=== PATIENT | female | born 1955 | race Caucasian/White ===

== ENCOUNTER 2019-01-02 15:39 | Inpatient (IN) | payer BC, MEDICARE ==
--- OUTSIDE RECORDS SUMMARY | 2019-01-02 16:40 | XMS REPORT | Continuity of Care Document ---
:1955 External Reference #:[id number] Author Name Lawrence Love MD (transmitted by agent of provider Norma Acosta) Address [address] [place] [address] Care Team Providers Name Role Phone Kari Lamas MD - Internal Medicine Care Team Information Rate Supervisor Kati Rosenthal MD - Physical Care Team Information Rate Supervisor [phone] Medicine & Rehabilitation Lawrence Love MD - Gastroenterology Care Team Information Rate Supervisor Christy Oneill MD - Surgery Care Team Information Rate Supervisor [phone] Elizabeth Giles MD - Internal Care Team Information Rate Supervisor Medicine Beltran Mac MD, [facility], [facility] - Care Team Information Rate Supervisor Cardiovascular Disease Kaylee Medina MD - Internal Care Team Information Rate Supervisor [phone] Medicine Gilberto Martell MD - Vascular Care Team Information Rate Supervisor [phone] Neurology Problems Active Problems Provider Date Sleep disorder Kari Lamas M.D. Onset: 10/27/2011 Mixed hyperlipidemia Kari Lamas M.D. Onset: 12/01/2012 Mitral valve disorder Paolo Olguin M.D. Onset: 06/21/2013 Dyspnea Paolo Olguin M.D. 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 Onset: 05/18/2013 Note: Dr. 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 Onset: 07/16/2014 Note: LAD Social History Type Date Description Comments Sex Unknown Tobacco Use Start: Unknown Never Smoked Cigarettes Smoking Status Reviewed: 12/07/18 Never Smoked Cigarettes ETOH Use Rarely consumes alcohol Tobacco Use Start: Unknown Patient has never smoked Recreational Drug Use Denies Drug Use Exercise Type/Frequency Exercises sporadically walking Allergies, Adverse Reactions, Alerts Active Allergies Reaction Severity Comments Date Sulfa rash Moderate 10/27/2011 Atorvastatin Myalgias 08/29/2014 Medications Active Medications SIG Qnty Indications Ordering Date Provider Fenofibrate Take 1 Tablet By 90tabs Elizabeth Giles, 04/10/2018 160mg Tablets Mouth Every Day M.D. Tikosyn 1 by mouth twice 180caps Paolo D. 05/06/2015 125mcg Capsules a day Brand, M.DJak Acetaminophen ER 1 tab by mouth 120tabs Unknown 650mg twice a day as Tablets ER needed Aspirin Low Dose 1 by mouth every Unknown 81mg day Tablets Lisinopril 1 tab every day 90tabs Paolo D. 2.5mg Tablets (hold for sbp Brand, M.D. <90) Hearing Aid started using Unknown Tuesday04/29/15 Multivitamins Gummies 1 gummie daily Unknown Immunizations CPT Code Status Date Vaccine Lot # [id number] Given 11/01/2018 Pneumococcal Conjugate Vaccine 13 Valent For [id number] Intramuscular Use 61787 Given 11/21/2017 Influenza Virus Vaccine, Quadrivalent, Split, Preservative Free 24812 Given 11/08/2016 Influenza Virus Vaccine, Quadrivalent, Split, [id number] Preservative Free 76263 Given 09/23/2016 Zoster (Zostavax) [id number] 76678 Given 11/13/2015 Influenza Virus Vaccine, Quadrivalent, Split, [id number] Preservative Free [id number] Given 01/14/2013 Flu Vaccine NOS 30341 Given 12/01/2012 Tdap - Tetanus/Diptheria/Acellular Pertussis [id number] 55231 Given Unknown Influenza Virus Vaccine, Quadrivalent, Split, Preservative Free Vital Signs Date Vital Result Comment 12/07/2018 2:45pm Height 64 inches 5'4" Weight 128.00 lb Heart Rate 73 /min BP Systolic 106 mmHg BP Diastolic 65 mmHg O2 % BldC Oximetry 92 % 92-94 while monitoring BMI (Body Mass Index) 22.0 kg/m2 11/01/2018 2:06pm Height 64 inches 5'4" Weight 128.00 lb Heart Rate 73 /min BP Systolic Sitting 113 mmHg BP Diastolic Sitting 62 mmHg O2 % BldC Oximetry 97 % BMI (Body Mass Index) 22.0 kg/m2 Results Test Date Facility Test Result H/L Range Note Laboratory test 11/01/2018 [facility] Cytology SEE RESULT [address] [place], [place] [id number] [phone] Order 11/01/2018 [facility] In-House Ear Irrigation <pending> 1 SEE RESULT BELOW Name: PATTIEYOHAJA KARIS : [address]: Elizabeth Giles MD Acct: [id number] Unit: [id number] AGE: 63 Location: [facility] Re11/01/18 SEX: F Status: REG REF SPEC: [id number] SKYLAR: 11/01/18-[address] [facility] [address]: Elizabeth Giles MD REQ: [id number] RECD: 11/01/18 STATUS: SOUT _ ORDERED: TP IMAGE ANALYS, HPV/Thin Prep, HPV 16/18 GENE COMMENTS: [id number] FINAL DIAGNOSIS Negative for Intraepithelial lesion or Malignancy HPV RESULTS Date Time Test Result Flag (u) Normal Range 11/01/18 1458 HPV PRASANNA RFLX GE Negative Negative The high-risk HPV types detected by the assay include: 16, 18, 31, 33, 35, 39, 45, 51, 52, 56, 58, 59, 66, and 68. SPECIMEN(S) RECEIVED A. Ectocervical/Endocervical CYTOLOGY ADEQUACY Specimen Adequacy: Satisfactory of evaluation Transformation zone component cannot be definitely identified due to presence of atrophy or other hormonal changes CYTOLOGY PATIENT INFORMATION Patient Information: HPV: High risk HPV RNA testing regardless of pap results. HPV 16/18 Genotype Reflex Actual Specimen Date: 11/01/18 Post Menopausal?: Y Previous Abnormal Pap Smears?:N CONTINUED ON NEXT PAGE DEPARTMENT OF PATHOLOGY, [address] [place] [address] Herbert Cabrera M.D. Director [facility] # [id number] Signed by and Reported on: GREYSON Meléndez(ASCP) [id number] This Pap test was evaluated with the assistance of the Sun Number[employer] Test Imaging System. Due to cytologic findings at the metal drill press operator microscope, comprehensive manual rescreening by a Data Warehousing Manager may be required. The Pap Smear is a screening test designed to aid in the detection of premalignant and malignant conditions of the uterine cervix. It is not a diagnostic procedure and should not be used as the sole means of detecting cervical cancer. Both false- positive and false- negative reports do occur. Depending on your risk status, a Pap smear should be obtained and evaluated every 1-3 years. END OF REPORT DEPARTMENT OF PATHOLOGY, [address] [place] [address] Herbert Cabrera M.D. Director [facility] # [id number] Procedures Date Code Description Status 11/01/2018 04805 Remove Impact Cerumen Irrigati Completed 08/09/2018 48551 EKG Tracing & Interpretation Completed 01/28/2017 [id number] Mammogram Completed 10/28/2016 [id number] Bone Mineral Density Test Completed 01/27/2016 [id number] Mammogram Completed 01/23/2014 [id number] Mammogram Completed 05/10/2013 [id number] Mammogram Completed 03/05/2013 [id number] Colonoscopy Completed 02/20/2013 [id number] Mammogram Completed 05/15/2010 [id number] Mammogram Completed 02/14/2005 [id number] Bone Mineral Density Test Completed Medical Devices Description No Information Available Encounters Type Date Location Provider Dx Diagnosis Office Visit 08/09/2018 [facility] Paolo Worthy I48.0 Paroxysmal atrial 9:30a Of Lroraine Olguin M.D. fibrillation I25.10 Athscl heart disease of resighini coronary artery w/o ang pctrs I34.0 Nonrheumatic mitral (valve) insufficiency Assessments Date Code Description Provider 11/01/2018 Z00.00 Encounter for general adult medical Elizabeth Giles M.D. examination without abnormal findings 11/01/2018 Z12.31 Encounter for screening mammogram for Elizabeth Giles M.D. malignant neoplasm of breast 11/01/2018 Z12.4 Encounter for screening for malignant Elizabeth Giles M.D. neoplasm of cervix 11/01/2018 Z86.010 Personal history of colonic polyps Elizabeth Giles M.D. 11/01/2018 Z23 Encounter for immunization Elizabeth Giles M.D. 11/01/2018 H61.21 Impacted cerumen, right ear Elizabeth Giles M.D. 11/01/2018 E78.2 Mixed hyperlipidemia Elizabeth Giles M.D. 08/09/2018 I48.0 Paroxysmal atrial fibrillation Paolo Olguin M.D. 08/09/2018 I25.10 Atherosclerotic heart disease of resighini Paolo Olguin M.D. coronary artery with 08/09/2018 I34.0 Nonrheumatic mitral (valve) insufficiency Paolo Olguin M.D. Plan of Treatment Future Appointment(s):01/31/2019 10:30 am - Paolo Olguin M.D. at [facility]05/08/2019 9:15 am - Elisa Wynn MD at [facility] Functional Status Description No Information Available Mental Status Description No Information Available Referrals Refer to Reason for Referral Status Appt Date Lawrence Love MD Sent 11/10/2018 [address] [place] [id number] [phone]
[2019-01-02 19:15] LABS: Albumin 3.4 g/dL (3.2-5.2); Albumin/Globulin Ratio 1.2 (1-3); BUN/Creatinine Ratio 29.2 (8-20); EGFR African American 111.4 (>60); EGFR Non-African American 92.1 (>60); Globulin 2.9 g/dL (2-4); Potassium 3.8 mmol/L (3.5-5.0); Total Bilirubin 0.4 mg/dL (0.2-1.0); Total Protein 6.3 g/dL (6.4-8.9)
[2019-01-02] MEDS ORDERED: Azithromycin 500 mg/250 ml NS 500 MG/250 ML BAG IVPB SCH (20:00)
--- NOTE | 2019-01-02 20:16 | HP ---
ADMISSION HISTORY AND PHYSICAL: DATE OF ADMISSION: 01/02/19 REASON FOR ADMISSION: Possible aspiration pneumonia. HISTORY OF PRESENT ILLNESS: This is a 63-year-old white female with a prior history of myotonic muscular dystrophy and recurrent AFib who underwent an elective outpatient colonoscopy earlier today. After the procedure, the patient was noted to have noisy respirations and a low SpO2. CXR showed an infiltrate in the left lower lobe (no prior films available for comparison). The patient denies any symptoms of a respiratory tract infection, and there hve been no recent URIs. OUTPATIENT MEDICATIONS: 1. Lisinopril 2.5 mg daily. 2. Tikosyn 125 mcg twice daily. 3. Fenofibrate 160 mg daily. DRUG ALLERGIES: SULFA, which causes a rash and ATORVASTATIN, which causes myalgias. SOCIAL HISTORY: The patient lives with her . There is no history of smoking, alcohol, or illicit drug use. REVIEW OF SYSTEMS: Noncontributory. PHYSICAL EXAMINATION GENERAL: The patient appeared tired, but was alert and oriented. VITAL SIGNS: Temperature was 97.3, heart rate 100 and regular, respiratory rate 22, O2 sat 90% on O2 by OxyMask at 15 L per minute, blood pressure 108/57. HEENT: Oropharynx was clear. There was no facial asymmetry. NECK: Supple. LUNGS: There were coarse rhonchi in the upper lung mcconnell, both anterior and posteriorly. No crackles or wheezes. CARDIAC: No murmurs. ABDOMEN: Not distended and nontender. EXTREMITIES: Warm, not cyanotic, and not edematous. DIAGNOSTIC STUDIES/LAB DATA: Labs pending. IMPRESSION AND PLAN: Acute hypoxemic respiratory failure due to left lower lobe pneumonia, which may be related to aspiration of mouth secretions during the procedure. Management: Empiric antibiotic treatment for community-acquired pneumonia with ceftriaxone and azithromycin. Culture blood and urine prior to antibiotics. Supplemental O2 to keep SpO2 > 90% and BIPAP in the evenings TIME SPENT: Critical care time: 60 minutes. [id number]/CPS #: [id number] MTDD
[2019-01-02 20:21] LABS: Hematocrit 41 % (35-47); Hemoglobin 13.5 g/dL (12.0-16.0); Mean Corpuscular HGB Conc 33 g/dL (31-36); Mean Corpuscular Hemoglobin 33 pg (27-31); Mean Corpuscular Volume 99 fL (80-97); Mean Platelet Volume 8.8 fL (7.4-10.4); Platelet Count 228 10^3/uL (150-450); Red Blood Count 4.12 10^6 /uL (3.70-4.87); Red Cell Distribution Width 14 % (10-15)
[2019-01-02] MEDS: Dofetilide CAP* 125 MCG PO SCH (20:59)
[2019-01-02] MEDS: Heparin VIAL(*) 5000 UNITS/ML VIAL (FIVE THOUSAND) SUBCUT SCH (21:06)
--- NOTE | 2019-01-02 21:22 | PN ---
Progress Note - Progress Note Date of Service: 01/02/19 Note: ECG shows a sinus rhythm with a left bundle branch block, Which is new since the last ECG on 05/08/2018. Will ask cardiology to evaluate in AM. Patient is clinically stable at this time.
[2019-01-03] MEDS ORDERED: NS 0.9% 1000 ML/HR X 1 BAG (TOTAL 1000 ML) IV ONE ×2 (01:15→02:30)
[2019-01-03 02:37] LABS: Hematocrit 35 % (35-47); Hemoglobin 11.4 g/dL (12.0-16.0); Mean Corpuscular HGB Conc 33 g/dL (31-36); Mean Corpuscular Hemoglobin 33 pg (27-31); Mean Corpuscular Volume 98 fL (80-97); Mean Platelet Volume 8.8 fL (7.4-10.4); Platelet Count 203 10^3/uL (150-450); Red Blood Count 3.51 10^6 /uL (3.70-4.87); Red Cell Distribution Width 13 % (10-15); White Blood Count 6.6 10^3/uL (3.5-10.8)
[2019-01-03 02:56] LABS: Albumin 2.8 g/dL (3.2-5.2); Albumin/Globulin Ratio 1.2 (1-3); BUN/Creatinine Ratio 24.1 (8-20); Calcium 8.1 mg/dL (8.6-10.3); EGFR African American 88.9 (>60); EGFR Non-African American 73.5 (>60); Globulin 2.4 g/dL (2-4); Potassium 4.1 mmol/L (3.5-5.0); Total Bilirubin 0.4 mg/dL (0.2-1.0); Total Protein 5.2 g/dL (6.4-8.9)
[2019-01-03] MEDS: NS 0.9% 1000 ML** 1,000 ML IV SCH (03:24)
[2019-01-03 08:48] LABS: Magnesium 1.8 mg/dL (1.9-2.7)
[2019-01-03] MEDS: Dofetilide CAP* 125 MCG PO SCH ×2 (08:56→20:05)
[2019-01-03] MEDS: Heparin VIAL(*) 5000 UNITS/ML VIAL (FIVE THOUSAND) SUBCUT SCH (08:56)
[2019-01-03] MEDS ORDERED: Albuterol/Ipratropium NEB.SOL* Albuterol 2.5 MG/Ipratropium 0.5 MG 3 ML ONE (09:27)
[2019-01-03] MEDS: Albuterol/Ipratropium NEB.SOL* Albuterol 2.5 MG/Ipratropium 0.5 MG 3 ML INH PRN ×2 (09:29→13:34)
[2019-01-03] MEDS ORDERED: Magnesium Sulfate 2 GM IV* 2 GM/50 ML BAG IVPB ONE (09:42)
[2019-01-03] MEDS ORDERED: Heparin VIAL(*) 5000 UNITS/ML VIAL (FIVE THOUSAND) IV PRN (10:15)
[2019-01-03] MEDS ORDERED: Heparin DRIP 25,000 UNITS(*) 25,000 UNITS/500 ML BAG IV SCH (10:15)
[2019-01-03] MEDS: Aspirin 81 mg CHEW TAB* 81 MG TAB.CHEW PO SCH (10:18)
[2019-01-03] MEDS: Cefepime 1 GM in Dextrose(*) 1 GM/50 ML BAG IV SCH ×2 (10:19→21:35)
[2019-01-03 10:43] LABS: Troponin I 0.03 ng/mL (<0.03)
[2019-01-03 10:46] LABS: Hematocrit 33 % (35-47); Mean Corpuscular HGB Conc 33 g/dL (31-36); Mean Corpuscular Hemoglobin 33 pg (27-31); Mean Corpuscular Volume 98 fL (80-97); Mean Platelet Volume 9.1 fL (7.4-10.4); Platelet Count 183 10^3/uL (150-450); Red Blood Count 3.36 10^6 /uL (3.70-4.87); Red Cell Distribution Width 13 % (10-15); White Blood Count 7.5 10^3/uL (3.5-10.8)
[2019-01-03] MEDS ORDERED: Adenosine* 3 MG/ML VIAL IV PUSH ONE (10:59)
[2019-01-03] MEDS ORDERED: Adenosine* 3 MG/ML VIAL ONE (11:02)
[2019-01-03 11:07] LABS: ABS Lymphocytes 0.7 10^3/ul (1.0-4.8); ABS Monocytes 0.3 10^3/ul (0-0.8); ABS Neutrophils 6.5 10^3/ul (1.5-7.7); Eosinophil % 0.1 %; Lymphocyte % 9.4 %
[2019-01-03 12:22] LABS: Troponin I 0.03 ng/mL (<0.03)
--- NOTE | 2019-01-03 12:35 | CONS ---
CONSULTATION REPORT: DATE OF CONSULT: 01/03/19 ATTENDING PHYSICIAN: Dr. Luis Uriarte, Cardiology.* (DICTATED BY TRINA SALGUERO NP) REASON FOR CONSULTATION: New left bundle-branch block. PRIMARY PRESIDENT AND CHIEF OPERATING OFFICER: Dr. Paolo Olguin. PRIMARY PHYSICIAN: Dr. Giles. CHIEF COMPLAINT: Here for elective colonoscopy, unfortunately developed respiratory compromise during procedure according to medical records. HISTORY OF PRESENT ILLNESS: This is a pleasant 63-year-old female patient with a notable history of paroxysmal AFib, paroxysmal aflutter, on Tikosyn therapy, most recent cardioversion was in 2015 in addition to coronary artery disease with known bare metal stent placement in 2013, relook in January of 2014 revealed 30% in- stent restenosis, hyperlipidemia, obstructive sleep apnea, myotonic dystrophy with prior tracheostomy, history of right subclavian DVT, mitral valve prolapse with history of severe mitral valve insufficiency status post mitral valve repair with size 28 ring at [facility] in September of 2013. The patient states she has been in her usual state of health. Denies any recent illness, infection, hospitalization. She presented to [facility] yesterday, 01/02/19, for elective colonoscopy with Dr. Love. According to medical records during the case, the patient became hypoxic, oxygenation in 80s. She was given Narcan and Romazicon. Oxygen improved to low 90s. She was admitted to the ICU on 01/02/19 due to hypoxia, possible aspiration pneumonia. ECG 01/02/19 revealed sinus rhythm rate 106 with new left bundle-branch block, thus we were asked to see the patient in consultation. She denies chest pain, dizziness, syncope. Does report chest congestion and forceful heart beats. She offers no complaints at this time. Last echocardiogram was in 2018. At that time, LVEF was 60% to 65% with mild left ventricular hypertrophy, trace aortic insufficiency, mean mitral valve gradient was 4. Last ischemic evaluation was via relook left heart catheterization in January of 2014. Per report at that time, left main 20%, LAD 30% in-stent restenosis, left circumflex and right coronary artery disease. No significant stenosis. PAST MEDICAL HISTORY: 1. Coronary artery disease. 2. Mitral valve replacement with history of severe mitral insufficiency, status post mitral valve repair in 2013. 3. Myotonic muscular dystrophy. 4. History of paroxysmal AFib, flutter. 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 6. Obstructive sleep apnea. 7. Hyperlipidemia. 8. Right subclavian DVT postoperatively. 9. Type 1 AV block. PAST SURGICAL HISTORY: Includes: 1. Prior left heart catheterization in 2013 which resulted in bare metal stent placement to LAD. 2. Relook left heart catheterization January 2014 revealed 30% in-stent restenosis. 3. Cardioversion in 2014 and most recent 2015. 4. Cholecystectomy. 5. Tonsillectomy. 6. 10/11/13 at [facility] she underwent mitral valve repair with size 28 ring. 7. Tracheostomy. HOME MEDICATIONS: Include: 1. Aspirin 81 mg a day. 2. Tikosyn 125 mcg p.o. b.i.d. 3. Fenofibrate 160 mg a day. 4. Lisinopril 2.5 mg daily. 5. Tylenol as directed and multivitamin as directed. ALLERGIES: Listed include SULFA and LIPITOR which causes myalgias. FAMILY HISTORY: Noncontributory. SOCIAL HISTORY: The patient is , lives at home with her . She ambulates independently but is limited. Denies tobacco use, drug use, alcohol use. REVIEW OF SYSTEMS: All systems have been reviewed and otherwise negative except as above mentioned in the HPI. PHYSICAL EXAMINATION: Pulse is 110, respirations 25, oxygenation is 91% on 6 L nasal cannula, blood pressure is 89/44. General: The patient is lying upright in bed with at bedside, appears in no apparent distress. She is an ill - appearing woman who is pleasant and cooperative with examination. HEENT: Head is atraumatic, normocephalic. Oral mucosa is moist. Tongue is midline. Neck: Supple. Trachea midline. No JVD. No carotid bruits. Cardiac: Tachycardic, S1 and S2. Regular rate and rhythm. There is a grade 2/5 systolic mitral valve murmur auscultated under left axilla; otherwise no gallop or rub. Lungs: Auscultated posteriorly, diffuse inspiratory, expiratory rhonchi noted throughout. No retractions noted. /GI: Abdomen is soft, nontender, nondistended. Normoactive bowel sounds x4. Extremities: No clubbing , no cyanosis, no edema. Peripheral Vascular: 2+ brachial pulse and dorsalis pedis pulse palpated bilaterally and symmetrically. DIAGNOSTIC STUDIES/LAB DATA: Blood work from 01/03/19 revealed sodium 138, potassium 4.1, chloride 108, carbon dioxide 25, BUN 19, creatinine 0.79, glucose 183, magnesium 1.8. Troponin 0.03. White count 7.5, hemoglobin 11, hematocrit 33, platelets 183. Chest x-ray from 01/03/19 per Radiology report; bilateral infiltrates with new left pleural effusion. Echocardiogram pending. ASSESSMENT AND PLAN: 1. New left bundle-branch block, etiology not clear, could be rate related; however, she does have known in-stent restenosis 30% in 2013 via re-looked heart catheterization. She denies angina like symptoms. She is currently being treated for possible aspiration pneumonia. Troponin is mildly elevated which is to be expected given acute illness; however, we will cycle isoenzymes. She is on IV heparin therapy which we would continue at this current time. We will await echocardiogram to rule out focal wall motion abnormality and reassess LV function. She has a history of nonischemic cardiomyopathy with normalization of EF in the past after mitral valve was repaired in 2013. We will follow closely. 2. Possible aspiration pneumonia; defer to Dr. Spain. Avoid medications that can prolong QTc given the patient is on Tikosyn therapy. 3. History of paroxysmal AFib, aflutter. The patient was given 3 mg IV adenosine. It was difficult to discern whether or not the patient was having underlying flutter, however, after administration of IV adenosine, it was clear that the patient is in sinus tachycardia. Recommend continuing Tikosyn therapy at 125 mcg p.o. b.i.d. Keep K greater than 4, mag greater than 2, avoid QTc prolonging agents. Azithromycin was discontinued. We will follow. 4. History of coronary artery disease with prior bare metal LAD stent with note of 30% in-stent re-stenosis based in January 2014 left heart catheterization. The patient denies chest pain. We will restart aspirin 81 mg a day. The patient is not on statin therapy due to history of myalgias. She needs to follow up outpatient to discuss initiation of PCS, K9 inhibitor, last LDL was 154. She has a new left bundle-branch block with troponinemia. We will cycle isoenzymes. Chest echo for focal wall motion abnormality and follow closely. 5. Disposition: Pending course. 6. The patient is full code. Dr. Luis Uriarte, has personally seen and examined, the patient agrees with the above assessment and plan. Thank you for this kind consultation. Any future questions or concerns, please do not hesitate to contact our service. TRINA SALGUERO, ASSET PROTECTION LEAD [id number]/[facility] #: [id number] patient examined and chart reviewed. d/w patient, at bedside, Ms. Salguero , and Dr. Spain on 01.03.19. Suspect significant pulmonary process and probable demand ischemia/small nstemi. However, given complex medical history and h.o CAD, repeat cardiac evaluation planned including echo and serial ekg's and serial troponins. We also performed a bedside evaluation with IV adenosine to evaluate her tachycardia with LBBB. With adenosine administration, she appeared to have sinus tachycardia, sinus slowing, one nonconducted p wave and then resumption of sinus tachycardia with a LBBB. Given her h.o paroxysmal afib, I suggested consideration of anticoagulation to decrease her risk of cardioembolic events The patient and her were reluctant to commit to long wall mining machine tender anticoagulation and were planning on discussing further with her primary banana room cutter Dr. Olguin. JEREL Uriarte MD 01.05.19 [facility]
[2019-01-03] MEDS ORDERED: Albuterol/Ipratropium NEB.SOL* Albuterol 2.5 MG/Ipratropium 0.5 MG 3 ML INH SCH ×2 (15:00→16:00)
--- NOTE | 2019-01-03 15:51 | ECHO ---
*[facility]* [place] [address] Fax #: [phone] Transthoracic Echocardiogram Patient: Cathleen Bailey : 1955 Study Date: 01/03/2019 Age: 63 Gender: F HR: 106 bpm Height: 66 in /167.6 cm BSA: 1.62 m^2 Weight: 121.7 lb /55.3 kg BMI: 19.7 kg/m^2 *Maintenance Pipefitter: * Felecia Banks [facility] *Referring Physician: * Johana Salguero *Reading Physician: * Luis Uriarte MD Indications: Abnormal EKG. History: Atrial fibrillation. Functional status: Following treatment plan for sleep apnea. Risk factors: Hypertension. Labs, prior tests, procedures, and surgery: Catheterization with coronary intervention (08/20/2013). There was a stenosis in the left anterior descending coronary artery which was treated with a bare-metal stent. Valve surgery (10/07/2013). Mitral annuloplasty ([id number], [id number]). Conclusions Summary: - Left ventricle: The cavity size is below normal. Wall thickness is normal. Systolic function is normal. The estimated ejection fraction is 60-65%. Systolic function is improved from the study of January 2014. Hypokinesis of the entire anteroseptal and inferoseptal myocardium possibly related to the LBBB. There is severe interventricular dyssynchrony. Doppler parameters are consistent with abnormal left ventricular relaxation (grade 1 diastolic dysfunction). - Right ventricle: The cavity size is mildly to moderately dilated. Systolic function is mildly to moderately reduced. Systolic pressure is moderately increased. - Mitral valve: Prior procedures include surgical repair. There is a normally functioning annuloplasty ring. The findings are consistent with mild to moderate stenosis.by mean gradient which may be elevated due the to resting tachycardia of 107 bpm. - Aortic valve: The valve is trileaflet. The leaflets are mildly thickened. - Tricuspid valve: There is moderate-severe regurgitation. Regurgitation has increased in comparison with the study of January 2014. - Pulmonary arteries: Systolic pressure is moderately increased. Pulmonary artery pressure has increased from the study of January 2014. Study data: Transthoracic echocardiogram. Procedure: Transthoracic echocardiography was performed. Image quality was fair. The study was technically limited due to restricted patient mobility. Complete 2D, spectral Doppler, and color flow Doppler. Location: ICU Patient status: Inpatient. Patient room number: ICU-05. The previous study was not available, so comparison is made to the report of January 2014. Rhythm: Tachycardia. Findings Left ventricle: The cavity size is below normal. Wall thickness is normal. Systolic function is normal. The estimated ejection fraction is 60-65%. Systolic function is improved from the study of January 2014. There is severe interventricular dyssynchrony. Regional wall motion abnormalities: Hypokinesis of the entire anteroseptal and inferoseptal myocardium possibly related to the LBBB. Hypokinesis of the basal-midinferior myocardium. Doppler parameters are consistent with abnormal left ventricular relaxation (grade 1 diastolic dysfunction). Right ventricle: The cavity size is mildly to moderately dilated. Systolic function is mildly to moderately reduced. Systolic pressure is moderately increased. Ventricular septum: There is septal flattening of the interventricular septum consistent with RV volume or pressure overload. Left atrium: The atrium is normal in size. Right atrium: The atrium is mildly dilated. Mitral valve: Prior procedures include surgical repair. There is a normally functioning annuloplasty ring. The leaflets are mildly thickened. The findings are consistent with mild to moderate stenosis.by mean gradient which may be elevated due the to resting tachycardia of 107 bpm. There is no significant regurgitation. Aortic valve: The valve is trileaflet. The leaflets are mildly thickened. There is no evidence of stenosis. There is no significant regurgitation. Tricuspid valve: The leaflets are normal thickness. There is no evidence of stenosis. There is moderate-severe regurgitation. Regurgitation has increased in comparison with the study of January 2014. Pulmonic valve: The leaflets are normal thickness. There is no evidence of stenosis. There is trace regurgitation. Aorta: Aortic root: The aortic root is appears normal. Ascending aorta: The ascending aorta is appears normal. Aortic arch: The aortic arch is appears normal. Pericardium: There is no significant pericardial effusion. Pulmonary arteries: The main pulmonary artery is normal-sized. Systolic pressure is moderately increased. Pulmonary artery pressure has increased from the study of January 2014. Systemic veins: Inferior vena cava: Not well visualized. Measurements Left ventricle Value Ref Aortic valve Value Ref JALYN, LAX (L) 3.6 cm 3.8 - 5.2 Blaze diam, ED 1.9 cm ----- ESD, LAX 2.4 cm 2.2 - 3.5 Peak v, S 1.47 m/sec ----- FS, LAX 34 % - 45 VTI, S 20.4 cm ----- PW, ED, LAX 0.7 cm 0.6 - 0.9 Mean grad, S 5.0 mm Hg ----- FS 34 % - 45 Peak grad, S 9.0 mm Hg ----- PW, ED 0.7 cm 0.6 - 0.9 LVOT/AV, VTI ratio 0.98 ----- E', lat blaze, TDI (L) 7.3 cm/sec >=10.0 E/e', lat blaze, 19 Mitral valve Value Ref TDI Peak E 1.4 m/sec ----- E', med blaze, TDI (L) 5.9 cm/sec >=7.0 Peak A 2.3 m/sec --- -- E/e', med blaze, 24 VTI leaflet coapt 38.0 cm ----- TDI Decel time 145 ms ----- E', avg, TDI 6.6 cm/sec PHT 88 ms ----- E/e', avg, TDI (H) 21 <=14 Mean grad, D 10.0 mm Hg --- -- Peak grad, D 22.0 mm Hg ----- LVOT Value Ref Peak E/A ratio 0.61 ----- Peak kinjal, S 1.3 m/sec MVA, PHT 2.5 cm^2 ----- VTI, S 20.0 cm Peak grad, S 7 mm Hg Pulmonic valve Value Ref Mean grad, S 5 mm Hg Peak v, S 0.91 m/sec ----- Peak grad, S 3.0 mm Hg ----- Ventricular septum Value Ref IVS, ED (H) 1.0 cm 0.6 - 0.9 Tricuspid valve Value Ref TR peak v (H) 3.5 m/sec <=2.8 Right ventricle Value Ref Peak RV-RA grad, S 49 mm Hg ----- AW thickness, ED 0.3 cm 0.1 - 0.5 JALYN, LAX 2.0 cm Aortic root Value Ref JALYN minor ax, A4C (H) 4.3 cm 1.9 - 3.5 Root diam 3.0 cm <3.9 mid Pressure, S 57 mm Hg Ascending aorta Value Ref AAo AP diam, S 2.9 cm ----- Left atrium Value Ref AP dim, ES 3.40 cm 2.70 - Aortic arch Value Ref 3.80 Arch diam 1.7 cm ----- ML dim, A4C 3.4 cm SI dim, A4C 5.1 cm Decending aorta Value Ref Vol/bsa, ES, 1-p 21 ml/m^2 11 - 40 Syed peak kinjal 0.8 m/sec ----- A4C Vol/bsa, ES, A/L 27 ml/m^2 16 - 34 Pulmonary artery Value Ref Pressure, S 54.0 mm Hg ----- Right atrium Value Ref SI dim, ES (H) 5.6 cm 3.4 - 5.3 ML dim, ES, A4C 3.6 cm 2.6 - 4.4 SI dim, ES, A4C (H) 5.6 cm 3.4 - 5.3 Legend: (L) and (H) linda values outside specified reference range. Prepared and electronically signed by Luis Uriarte MD 01/03/2019 15:50
--- NOTE | 2019-01-03 17:38 | PN ---
Date of Service: 01/03/19 Critical Care Services: Clinical status unchanged. CXR this AM shows continued infiltration of left lower lobe. Vital Signs: Temp Pulse Resp BP SpO2 FiO2 99.1 F 117 21 105/55 93 Physical Exam: Gen:Somnolent but arousable HEENT:oropharynx clear Lungs: crackles left base Cardiac: No murmurs Abdomen: not distended Extremities: No cyanosis or edema Fluid Balance (Past 24 Hours): 01/03/19 01/04/19 06:59 06:59 Intake Total 2466 1514 Output Total 0 Balance 2466 1514 Weight 122 lb 9 oz Intake: IV Fluids 2190 979 Mag 2g 62 Normal Saline 2190 855 heparin 62 IVPB 276 55 antibiotics 276 55 Oral 480 Output: Urine 0 Other: Estimated Void Large Medium # Voids 1 1 Labs: Laboratory Results - last 24 hr 01/02/19 01/02/19 01/03/19 18:46 20:05 02:28 WBC 6.0 RBC 4.12 Hgb 13.5 Hct 41 MCV 99 H MCH 33 H MCHC 33 RDW 14 Plt Count 228 MPV 8.8 Neut % (Auto) Lymph % (Auto) [place] % (Auto) Eos % (Auto) Baso % (Auto) Absolute Neuts (auto) Absolute Lymphs (auto) Absolute Monos (auto) Absolute Eos (auto) Absolute Basos (auto) Absolute Nucleated RBC Immature Gran % Neutrophils % Band Neutrophils % Lymphocytes % Monocytes % Eosinophils % Basophils % Nucleated RBC % Normal RBC Morphology APTT Sodium 139 138 Potassium 3.8 4.1 Chloride 105 108 Carbon Dioxide 22 25 Anion Gap 12 H 5 BUN 19 19 Creatinine 0.65 0.79 Est GFR ( Amer) 111.4 88.9 Est GFR (Non-Af Amer) 92.1 73.5 BUN/Creatinine Ratio 29.2 H 24.1 H Glucose 89 183 H Lactic Acid Calcium 9.0 8.1 L Magnesium 1.8 L Total Bilirubin 0.40 0.40 AST 28 21 ALT 16 14 Alkaline Phosphatase 37 27 L Troponin I 0.03 H* Total Protein 6.3 L 5.2 L Albumin 3.4 2.8 L Globulin 2.9 2.4 Albumin/Globulin Ratio 1.2 1.2 01/03/19 01/03/19 01/03/19 02:28 02:28 10:00 WBC 6.6 RBC 3.51 L Hgb 11.4 L Hct 35 MCV 98 H MCH 33 H MCHC 33 RDW 13 Plt Count 203 MPV 8.8 Neut % (Auto) Lymph % (Auto) [place] % (Auto) Eos % (Auto) Baso % (Auto) Absolute Neuts (auto) Absolute Lymphs (auto) Absolute Monos (auto) Absolute Eos (auto) Absolute Basos (auto) Absolute Nucleated RBC Immature Gran % Neutrophils % Band Neutrophils % Lymphocytes % Monocytes % Eosinophils % Basophils % Nucleated RBC % Normal RBC Morphology APTT Sodium Potassium Chloride Carbon Dioxide Anion Gap BUN Creatinine Est GFR ( Amer) Est GFR (Non-Af Amer) BUN/Creatinine Ratio Glucose Lactic Acid 1.0 Calcium Magnesium Total Bilirubin AST ALT Alkaline Phosphatase Troponin I 0.03 H* Total Protein Albumin Globulin Albumin/Globulin Ratio 01/03/19 01/03/19 01/03/19 10:28 10:28 14:00 WBC 7.5 RBC 3.36 L Hgb 11.0 L Hct 33 L MCV 98 H MCH 33 H MCHC 33 RDW 13 Plt Count 183 MPV 9.1 Neut % (Auto) 86.4 Lymph % (Auto) 9.4 [place] % (Auto) 4.0 Eos % (Auto) 0.1 Baso % (Auto) 0.1 Absolute Neuts (auto) 6.5 Absolute Lymphs (auto) 0.7 L Absolute Monos (auto) 0.3 Absolute Eos (auto) 0.0 Absolute Basos (auto) 0.0 Absolute Nucleated RBC 0.0 Immature Gran % 16.0 H Neutrophils % 64.0 Band Neutrophils % 16.0 H Lymphocytes % 12.0 Monocytes % 7.0 Eosinophils % 1.0 Basophils % 0.0 Nucleated RBC % 0.0 Normal RBC Morphology Normal APTT 38.0 Sodium Potassium Chloride Carbon Dioxide Anion Gap BUN Creatinine Est GFR ( Amer) Est GFR (Non-Af Amer) BUN/Creatinine Ratio Glucose Lactic Acid Calcium Magnesium Total Bilirubin AST ALT Alkaline Phosphatase Troponin I 0.02 Total Protein Albumin Globulin Albumin/Globulin Ratio Studies: Pneumococcal and legionella urinary antigens negative. Nutrition: Oral diet Impression: I still believe patient has a pneumonia in the left lower lobe. The leukocyte count is normal, but there are 16% band forms (suggesting infection or inflammation). Cardiology is evaluating the new left bundle branch block. Plan: 1. Continue broad-spectrum antibiotics, and monitor in the ICU. 2. BIPAP for sleep 3. Cardiology following LBBB. Critical Care Time: 40 minutes
[2019-01-03 19:34] LABS: EGFR African American 97.4 (>60); EGFR Non-African American 80.5 (>60)
[2019-01-03] MEDS: Albuterol/Ipratropium NEB.SOL* Albuterol 2.5 MG/Ipratropium 0.5 MG 3 ML INH SCH (19:58)
[2019-01-04 00:29] LABS: BUN/Creatinine Ratio 15.5 (8-20); Calcium 7.7 mg/dL (8.6-10.3); EGFR African American 100.6 (>60); EGFR Non-African American 83.1 (>60)
[2019-01-04] MEDS: Albuterol/Ipratropium NEB.SOL* Albuterol 2.5 MG/Ipratropium 0.5 MG 3 ML INH SCH ×4 (01:13→20:16)
[2019-01-04 02:19] LABS: ABS Lymphocytes 0.8 10^3/ul (1.0-4.8); ABS Monocytes 0.2 10^3/ul (0-0.8); ABS Neutrophils 3.3 10^3/ul (1.5-7.7); Eosinophil % 0.2 %; Hematocrit 31 % (35-47); Hemoglobin 10.4 g/dL (12.0-16.0); Mean Corpuscular HGB Conc 34 g/dL (31-36); Mean Corpuscular Hemoglobin 33 pg (27-31); Mean Corpuscular Volume 99 fL (80-97); Platelet Count 157 10^3/uL (150-450); Red Blood Count 3.14 10^6 /uL (3.70-4.87); Red Cell Distribution Width 14 % (10-15); White Blood Count 4.4 10^3/uL (3.5-10.8)
[2019-01-04] MEDS: NS 0.9% 500 ML* 500 ML IV ONE ×2 (08:00→11:47)
[2019-01-04] MEDS ORDERED: Etomidate* 2 MG/ML 20 ML VIAL (40 MG) ONE (08:29)
[2019-01-04] MEDS ORDERED: fentaNYL* 50 MCG/ML 5 ML VIAL (250 MCG VIAL) ONE (08:29)
[2019-01-04] MEDS: Propofol* 100 ML IV SCH ×4 (08:33→23:57)
[2019-01-04] MEDS ORDERED: Propofol* 100 ML ONE (08:37)
[2019-01-04] MEDS ORDERED: Enoxaparin(*) 60 MG/0.6 ML SYR SUBCUT SCH (10:00)
[2019-01-04] MEDS: Aspirin 81 mg CHEW TAB* 81 MG TAB.CHEW PO SCH (10:19)
--- NOTE | 2019-01-04 10:36 | PN ---
Cardiology Progress Note Date of Service: 01/04/19 Attention coders please do not bill for this encounter: EKG today NSR, normal qtc, no longer LBBB Discussed with Dr. Tony Spain does not need therapeutic anticoagulation from a cardiac standpoint Can use aspirin as was on prior to admission
[2019-01-04] MEDS: Chlorhexidine MOUTHWASH 0.12%* 15 ML UDC TOPICAL SCH ×4 (11:07→21:00)
[2019-01-04] MEDS: Dofetilide CAP* 125 MCG PO SCH ×2 (11:07→21:00)
[2019-01-04] MEDS: Cefepime 1 GM in Dextrose(*) 1 GM/50 ML BAG IV SCH ×2 (12:56→13:48)
--- NOTE | 2019-01-04 15:31 | PN ---
Date of Service: 01/04/19 Critical Care Services: Patient was intubated earlier today because of hypoxemia (sats down into low 70s despite vapotherm nad BIPAP) and is now on a ventilator. CXR continues to show a LLL infiltrate and small (by ultrasound) parapneumonic effusion. On cefapime as empiric Rx. The LBBB has resolved since the intubation. Vital Signs: Temp Pulse Resp BP SpO2 FiO2 97.1 F 89 16 91/56 99 80 Physical Exam: Gen:Unresponsive on propofol HEENT: No facial asymmetry Lungs: Coarse rhonchi both sides. Cardiac: Nu murmurs. Rhythm regular Abdomen:Not distended Extremities: No cyanosis or edema Fluid Balance (Past 24 Hours): 01/03/19 01/04/19 06:59 06:59 Intake Total 2466 3304 Output Total 0 200 Balance 2466 3104 Weight 122 lb 9 oz 121 lb 9 oz Intake: IV Fluids 2190 2759 Mag 2g 62 Normal Saline 2190 2356 antibiotics 59 heparin 282 IVPB 276 55 antibiotics 276 55 Medicated IV CC - Propofol/Diprivan Oral 490 Output: Urine 0 Valera 200 Other: Estimated Void Large Medium # Voids 1 2 Labs: 01/03/19 01/04/19 01/04/19 19:10 00:07 02:05 WBC RBC Hgb Hct MCV MCH MCHC RDW Plt Count MPV Neut % (Auto) Lymph % (Auto) [place] % (Auto) Eos % (Auto) Baso % (Auto) Absolute Neuts (auto) Absolute Lymphs (auto) Absolute Monos (auto) Absolute Eos (auto) Absolute Basos (auto) Absolute Nucleated RBC Nucleated RBC % APTT 90.5 H 88.6 H Sodium 138 Potassium 4.0 Chloride 112 H Carbon Dioxide 24 Anion Gap 2 BUN 11 Creatinine 0.71 Est GFR ( Amer) 100.6 Est GFR (Non-Af Amer) 83.1 BUN/Creatinine Ratio 15.5 Glucose 122 H Calcium 7.7 L 01/04/19 02:05 WBC 4.4 RBC 3.14 L Hgb 10.4 L Hct 31 L MCV 99 H MCH 33 H MCHC 34 RDW 14 Plt Count 157 MPV 9.0 Neut % (Auto) 75.3 Lymph % (Auto) 19.0 [place] % (Auto) 5.1 Eos % (Auto) 0.2 Baso % (Auto) 0.4 Absolute Neuts (auto) 3.3 Absolute Lymphs (auto) 0.8 L Absolute Monos (auto) 0.2 Absolute Eos (auto) 0.0 Absolute Basos (auto) 0.0 Absolute Nucleated RBC 0.0 Nucleated RBC % 0.0 APTT Sodium Potassium Chloride Carbon Dioxide Anion Gap BUN Creatinine Est GFR ( Amer) Est GFR (Non-Af Amer) BUN/Creatinine Ratio Glucose Calcium Studies: Chest ultrasound, as mentioned previously. Nutrition: None today Impression: 1. Hypoxemic respiratory failure from pneumonia of left lower lobe with retained secretions 2. No organism isolated and patient not responding to antibiotics - ? could this patient have [employer]? 3. Myotonic muscular dystrophy Plan: 1. Start tube feedings 2. Trial of steroids for [employer] - methylprednisolone at 125 mg IV q 6H x 5 days Critical Care Time:
[2019-01-04] MEDS: Acetaminophen ADULT LIQ* 650 MG/20.3 ML UDC PO PRN (17:32)
[2019-01-04] MEDS: Enoxaparin(*) 40 MG/0.4 ML SYR SUBCUT SCH (17:44)
[2019-01-04] MEDS: methylPREDNISolone 125 MG* 2 ML VIAL IV SCH (17:44)
--- NOTE | 2019-01-04 20:58 | PRO ---
DATE OF PROCEDURE: 01/04/19 - ROOM #ICU-05 PROCEDURE: Endotracheal intubation. INDICATIONS: The patient is a 63-year-old female with muscular dystrophy who developed a pneumonia in her left lower lobe and became progressively hypoxemic. This morning, arterial O2 sats were down into the 70s on Vapotherm, and the patient did not tolerate BiPAP, so endotracheal intubation was performed emergently. DESCRIPTION OF PROCEDURE: The patient was sedated with fentanyl and etomidate and a size 7.5 endotracheal tube was inserted through the vocal cords into the trachea under videoscopic control. Placement in the trachea was confirmed by qualitative CO2 color change. Postprocedure x-ray showed proper placement of the tube above the misael. There are no apparent complications. [id number] #: [id number] MTDD
[2019-01-04] MEDS: NS 0.9% 1000 ML** 1,000 ML IV SCH (21:08)
[2019-01-05] MEDS: Cefepime 1 GM in Dextrose(*) 1 GM/50 ML BAG IV SCH ×2 (00:20→12:35)
[2019-01-05] MEDS: Chlorhexidine MOUTHWASH 0.12%* 15 ML UDC TOPICAL SCH ×7 (00:21→23:56)
[2019-01-05] MEDS: methylPREDNISolone 125 MG* 2 ML VIAL IV SCH ×2 (00:21→06:03)
[2019-01-05] MEDS: Albuterol/Ipratropium NEB.SOL* Albuterol 2.5 MG/Ipratropium 0.5 MG 3 ML INH SCH ×4 (01:17→19:22)
[2019-01-05] MEDS: Propofol* 100 ML IV SCH ×4 (04:08→21:45)
[2019-01-05 07:51] LABS: Hematocrit 27 % (35-47); Hemoglobin 9.1 g/dL (12.0-16.0); Mean Corpuscular HGB Conc 34 g/dL (31-36); Mean Corpuscular Hemoglobin 33 pg (27-31); Mean Corpuscular Volume 98 fL (80-97); Mean Platelet Volume 9.7 fL (7.4-10.4); Platelet Count 167 10^3/uL (150-450); Red Blood Count 2.79 10^6 /uL (3.70-4.87); Red Cell Distribution Width 14 % (10-15); White Blood Count 4.9 10^3/uL (3.5-10.8)
[2019-01-05] MEDS: NS 0.9% 1000 ML** 1,000 ML IV SCH (07:56)
[2019-01-05 08:01] LABS: BUN/Creatinine Ratio 12.7 (8-20); EGFR African American 135.1 (>60); EGFR Non-African American 111.6 (>60); Potassium 3.5 mmol/L (3.5-5.0)
[2019-01-05] MEDS: Dofetilide CAP* 125 MCG PO SCH ×2 (08:31→21:49)
[2019-01-05] MEDS: Famotidine SUSP ORALSYR 8 MG/ML G TUBE SCH (08:32)
[2019-01-05] MEDS ORDERED: Dextrose 50% VIAL 50 ml IV PUSH PRN (09:53)
[2019-01-05] MEDS: Furosemide IV* 10 MG/ML VIAL (40 MG) IV SLOW PU SCH ×2 (10:21→17:25)
--- NOTE | 2019-01-05 11:13 | PN ---
Date of Service: 01/05/19 Critical Care Services: 63 y/o female acute hypoxic respiratory failure in setting of pneumonia Vital Signs: Temp Pulse Resp BP SpO2 FiO2 37.4 C 85 16 102/51 98 60 01/05/19 09:15 01/05/19 09:15 01/05/19 09:00 01/05/19 09:15 01/05/19 09:15 01/05 08:00 Physical Exam: Gen: intubated and sedated HEENT: intubated. PERRL Lungs: decreased basilar entry Cardiac: S1S2 regular Abdomen: soft, NT, ND, +BS Extremities: +1 edema Neuro: rouses through light sedation Fluid Balance (Past 24 Hours): I= O= Net Intake & Output 01/03/19 01/04/19 01/05/19 01/06/19 06:59 06:59 06:59 06:59 Intake Total 2466 3304 2532 Output Total 0 200 1550 275 Balance 2466 3104 982 -275 Weight 55.593 kg 55.14 kg 55.267 kg Intake: IV Fluids 2190 2759 2046 Mag 2g 62 Normal Saline 2190 2356 2046 antibiotics 59 heparin 282 IVPB 276 55 114 antibiotics 276 55 114 Medicated IV 372 CC - Propofol/Diprivan 372 Oral 490 Output: Urine 0 Valera 200 1550 275 Other: Estimated Void Large Medium # Voids 1 2 Labs: Laboratory Results - last 24 hr 01/05/19 01/05/19 07:29 07:29 WBC 4.9 RBC 2.79 L Hgb 9.1 L Hct 27 L MCV 98 H MCH 33 H MCHC 34 RDW 14 Plt Count 167 MPV 9.7 Sodium 142 Potassium 3.5 Chloride 114 H Carbon Dioxide 25 Anion Gap 3 BUN 7 Creatinine 0.55 Est GFR ( Amer) 135.1 Est GFR (Non-Af Amer) 111.6 BUN/Creatinine Ratio 12.7 Glucose 238 H Calcium 8.0 L Studies: CXR with bilateral effusions, possible left basilar infiltrate Nutrition: Will start TF Impression: 63 y/o female with CAP and bilateral effusions causing acute hypoxic respiratory failure. 6.5 liters positive balance and edema to exam. Will diruese today and start TF. Complete course of Abx. Plan: Acute Hypoxic Respiratory Failure - continue to treat pneumonia and diurese. Will focus on diuresis, high dose steroids will complicate that issue. CXR pattern less interstitial than I usually see with [employer] and confined to lower lobes rather than diffuse, always possible but given strong evidence for excess water will focus there for now. Has received a solid dose of steroids, will hold further dosing and observe for improvement along with diuresis. Sepsis - resolved. DC IVF, continue Abx. Supportive care - DVT prophylaxis on board, glycemic control initiated along with GI prophylaxis. D/W in detail who voiced understanding and appreciation for the care. Critical Care Time: 40
[2019-01-05] MEDS: Insulin LISPRO* 1 UNITS UNIT SUBCUT SCH ×3 (12:35→23:56)
[2019-01-05] MEDS: Enoxaparin(*) 40 MG/0.4 ML SYR SUBCUT SCH (17:24)
[2019-01-05] MEDS: KCL 10 MEQ/50 ML IVPREMIX* 10 MEQ/50 ML BAG IV SCH ×2 (22:12→23:50)
[2019-01-06] MEDS: Cefepime 1 GM in Dextrose(*) 1 GM/50 ML BAG IV SCH ×2 (01:09→13:06)
[2019-01-06] MEDS: Albuterol/Ipratropium NEB.SOL* Albuterol 2.5 MG/Ipratropium 0.5 MG 3 ML INH SCH ×4 (01:47→19:27)
[2019-01-06] MEDS: Propofol* 100 ML IV SCH ×2 (03:01→09:17)
[2019-01-06] MEDS: Chlorhexidine MOUTHWASH 0.12%* 15 ML UDC TOPICAL SCH ×5 (04:23→19:43)
[2019-01-06 05:47] LABS: Hematocrit 32 % (35-47); Hemoglobin 10.6 g/dL (12.0-16.0); Mean Corpuscular HGB Conc 33 g/dL (31-36); Mean Corpuscular Hemoglobin 32 pg (27-31); Mean Corpuscular Volume 97 fL (80-97); Platelet Count 239 10^3/uL (150-450); Red Blood Count 3.31 10^6 /uL (3.70-4.87); Red Cell Distribution Width 14 % (10-15); White Blood Count 8.8 10^3/uL (3.5-10.8)
[2019-01-06 06:00] LABS: Albumin 3.1 g/dL (3.2-5.2); Calcium 8.7 mg/dL (8.6-10.3); Magnesium 1.9 mg/dL (1.9-2.7); Total Bilirubin 0.4 mg/dL (0.2-1.0)
[2019-01-06 06:06] LABS: BUN/Creatinine Ratio 19.1 (8-20); EGFR African American 105.7 (>60); EGFR Non-African American 87.4 (>60); Phosphorus 1.1 mg/dL (2.5-5.0); Total Protein 6.1 g/dL (6.4-8.9)
[2019-01-06] MEDS: Insulin LISPRO* 1 UNITS UNIT SUBCUT SCH ×3 (06:24→18:22)
[2019-01-06] MEDS: Famotidine SUSP ORALSYR 8 MG/ML G TUBE SCH (09:18)
[2019-01-06] MEDS ORDERED: Propofol* 100 ML IV SCH (09:24)
[2019-01-06] MEDS ORDERED: NS 0.9% IV ONE (09:30)
[2019-01-06] MEDS ORDERED: Magnesium Sulfate 2 GM IV* 2 GM/50 ML BAG IVPB ONE (09:30)
[2019-01-06] MEDS ORDERED: CALCIUM GLUCONATE IV ONE (09:30)
[2019-01-06] MEDS ORDERED: Potassium Phosphate IV* 20 MMOLE in NS 0.9% 250 ML* 250 ML IVPB ONE (10:00)
[2019-01-06] MEDS: Dexmedetomidine* 1,000 MCG in NS 0.9% 250 ML* 240 ML IV SCH ×2 (10:09→23:59)
[2019-01-06] MEDS: Furosemide IV* 10 MG/ML VIAL (40 MG) IV SLOW PU SCH (10:32)
[2019-01-06] MEDS ORDERED: Potassium Chlor TAB* 20 MEQ TAB.ER PO ONE (10:44)
--- NOTE | 2019-01-06 10:50 | PN ---
Date of Service: 01/06/19 Critical Care Services: 63 y/o female acute hypoxic respiratory failure with left basilar infiltrate and superimposed hypervolemia in negative balance 3 liters the last 24hrs. Vital Signs: Temp Pulse Resp BP SpO2 FiO2 37.7 C 78 16 119/51 94 45 01/06/19 10:30 01/06/19 10:30 01/06/19 07:30 01/06/19 10:30 01/06/19 10:30 01/06 07:31 Physical Exam: Gen: lightly sedated on high dose diprivan ( responsive on 50mcg/kg/min) HEENT: NCAT, intubated, PERRL Lungs: coarse entry Cardiac: S1S2 regular Abdomen: soft, NT, ND, +BS Extremities: decreased edema Neuro: answers some questions, moves extremities Fluid Balance (Past 24 Hours): I= O= Net Intake & Output 01/04/19 01/05/19 01/06/19 01/07/19 06:59 06:59 06:59 06:59 Intake Total 3304 2532 1217 Output Total 200 1550 4310 145 Balance 3104 982 -3093 -145 Weight 55.14 kg 55.267 kg 59.9 kg Intake: IV Fluids 2759 2046 480 Mag 2g 62 Normal Saline 2356 2046 480 antibiotics 59 heparin 282 IVPB 55 114 248 KCl 118 antibiotics 55 114 130 Medicated IV 372 364 CC - Propofol/Diprivan 372 364 Oral 490 Tube Feeding 125 Output: Valera 200 1550 4295 145 Tube Feeding Residual 15 Amount Wasted Other: Estimated Void Medium # Voids 2 Labs: Laboratory Results - last 24 hr 01/05/19 01/05/19 01/05/19 12:09 17:10 21:06 WBC RBC Hgb Hct MCV MCH MCHC RDW Plt Count MPV Sodium Potassium TNP Chloride Carbon Dioxide Anion Gap BUN Creatinine Est GFR ( Amer) Est GFR (Non-Af Amer) BUN/Creatinine Ratio Glucose POC Glucose (mg/dL) 312 H 295 H Calcium Ionized Calcium Phosphorus Magnesium TNP Total Bilirubin AST ALT Alkaline Phosphatase Total Protein Albumin Globulin Albumin/Globulin Ratio 01/05/19 01/06/19 01/06/19 23:53 05:33 05:33 WBC 8.8 RBC 3.31 L Hgb 10.6 L Hct 32 L MCV 97 MCH 32 H MCHC 33 RDW 14 Plt Count 239 MPV 9.0 Sodium 146 H Potassium 3.0 L Chloride 107 Carbon Dioxide 33 H Anion Gap 6 BUN 13 Creatinine 0.68 Est GFR ( Amer) 105.7 Est GFR (Non-Af Amer) 87.4 BUN/Creatinine Ratio 19.1 Glucose 90 POC Glucose (mg/dL) 252 H Calcium 8.7 Ionized Calcium Phosphorus 1.1 L Magnesium 1.9 Total Bilirubin 0.40 AST 21 ALT 28 Alkaline Phosphatase 44 Total Protein 6.1 L Albumin 3.1 L Globulin 3.0 Albumin/Globulin Ratio 1.0 01/06/19 05:33 WBC RBC Hgb Hct MCV MCH MCHC RDW Plt Count MPV Sodium Potassium Chloride Carbon Dioxide Anion Gap BUN Creatinine Est GFR ( Amer) Est GFR (Non-Af Amer) BUN/Creatinine Ratio Glucose POC Glucose (mg/dL) Calcium Ionized Calcium 1.10 L Phosphorus Magnesium Total Bilirubin AST ALT Alkaline Phosphatase Total Protein Albumin Globulin Albumin/Globulin Ratio Studies: CXR with improved aeration and clearing of water, left lagging the right as expected Nutrition: Kira TF with some question of reflux this AM Impression: 63 y/o female acute hypoxic respiratory failure with left basilar infiltrate and superimposed hypervolemia in negative balance 3 liters the last 24hrs. Responding well to lasix with interval improvement in exam and CXR. Needs better anxiolysis without attendant HoTN to facilitate further diuresis and extubation. Plan: Acute Hypoxic Respiratory Failure - CXR improved, mechanics improving, tolerating strong negative balance with improvement in CXR and exam with nl Cr and adequate BP when not sedated. Will need to address her anxiolysis as the propofol has been the barrier to adequate further diuresis, will try precedex. Not on any anxiolytics per her home meds. Pneumonia - hard to know true pneumonia vs sterile aspiration but too vulnerable not to complete a course of Abx and the bandemia 2 days ago suggests pneumonia was at least brewing. WBC has remained normal, will check CBC with diff in AM. Complete a 7 day course of ABx. Electrolyte abnormalities - hypokalemia, hypomagnesemia, hypocalcemia and hypophosphatemia - repleting all the above with special attention to the potassium on Tikosyn. Supportive care - tolerating TF until some reflux noted and held this AM, will hold for the moment and plan restart with HOB higher than current, GI/DVT prophylaxis on board. D/W Dr. Love. D/W in detail at bedside who voiced understanding and appreciation for the care. Critical Care Time: 40 minutes
[2019-01-06 15:49] LABS: Albumin 3.1 g/dL (3.2-5.2); Magnesium 2.9 mg/dL (1.9-2.7); Potassium 3.3 mmol/L (3.5-5.0); Total Bilirubin 0.6 mg/dL (0.2-1.0)
[2019-01-06 15:55] LABS: BUN/Creatinine Ratio 19.7 (8-20); EGFR African American 109.4 (>60); EGFR Non-African American 90.5 (>60); Phosphorus 1.8 mg/dL (2.5-5.0); Total Protein 6.1 g/dL (6.4-8.9)
[2019-01-06] MEDS ORDERED: acetaZOLAMIDE VIAL* 500 MG in NS 0.9% 50 ML* 50 ML IVPB SCH (16:00)
[2019-01-06] MEDS: Albumin Human 5%* 12.5 GM/250 ML BTL IV SCH ×4 (16:57→18:37)
[2019-01-06] MEDS: Enoxaparin(*) 40 MG/0.4 ML SYR SUBCUT SCH (16:58)
[2019-01-06] MEDS: acetaZOLAMIDE VIAL* 500 MG in NS 0.9% 50 ML* 50 ML IVPB SCH (18:06)
[2019-01-06] MEDS: Dofetilide CAP* 125 MCG PO SCH ×2 (18:22→19:59)
[2019-01-06] MEDS ORDERED: Potassium Phosphate IV* 10 MMOLE in NS 0.9% 250 ML* 250 ML IVPB ONE (18:30)
[2019-01-07] MEDS: Chlorhexidine MOUTHWASH 0.12%* 15 ML UDC TOPICAL SCH ×6 (00:16→20:16)
[2019-01-07] MEDS: Cefepime 1 GM in Dextrose(*) 1 GM/50 ML BAG IV SCH ×2 (00:16→11:59)
[2019-01-07] MEDS: Insulin LISPRO* 1 UNITS UNIT SUBCUT SCH ×4 (00:30→18:29)
[2019-01-07] MEDS: acetaZOLAMIDE VIAL* 500 MG in NS 0.9% 50 ML* 50 ML IVPB SCH ×2 (04:21→16:17)
[2019-01-07 05:45] LABS: ABS Eosinophils 0.1 10^3/ul (0-0.6); ABS Lymphocytes 1.3 10^3/ul (1.0-4.8); ABS Monocytes 0.4 10^3/ul (0-0.8); ABS Neutrophils 3.6 10^3/ul (1.5-7.7); Eosinophil % 1.7 %; Hematocrit 28 % (35-47); Hemoglobin 9.1 g/dL (12.0-16.0); Lymphocyte % 23.7 %; Mean Corpuscular HGB Conc 33 g/dL (31-36); Mean Corpuscular Hemoglobin 32 pg (27-31); Mean Corpuscular Volume 98 fL (80-97); Mean Platelet Volume 8.6 fL (7.4-10.4); Platelet Count 209 10^3/uL (150-450); Red Blood Count 2.82 10^6 /uL (3.70-4.87); Red Cell Distribution Width 14 % (10-15); White Blood Count 5.4 10^3/uL (3.5-10.8)
[2019-01-07 06:09] LABS: Albumin 3.5 g/dL (3.2-5.2); Calcium 9.2 mg/dL (8.6-10.3); Magnesium 2.6 mg/dL (1.9-2.7); Potassium 3.4 mmol/L (3.5-5.0); Total Bilirubin 0.6 mg/dL (0.2-1.0)
[2019-01-07 06:15] LABS: Albumin/Globulin Ratio 1.5 (1-3); BUN/Creatinine Ratio 23.2 (8-20); EGFR Non-African American 85.9 (>60); Globulin 2.4 g/dL (2-4); Phosphorus 2.5 mg/dL (2.5-5.0); Total Protein 5.9 g/dL (6.4-8.9)
[2019-01-07] MEDS: KCL premix 10 MEQ/50 ML IVPREMIX x 4 RUNS IV SCH ×4 (06:34→10:44)
[2019-01-07] MEDS: Albuterol/Ipratropium NEB.SOL* Albuterol 2.5 MG/Ipratropium 0.5 MG 3 ML INH SCH ×4 (06:37→19:29)
[2019-01-07 06:46] LABS: TSH (Thyroid Stimulating Horm) 3.73 mcIU/mL (0.34-5.60)
[2019-01-07 06:48] LABS: Free T4 0.94 ng/dL (0.61-1.12)
[2019-01-07] MEDS: Dofetilide CAP* 125 MCG PO SCH ×2 (09:33→20:54)
[2019-01-07] MEDS: Famotidine SUSP ORALSYR 8 MG/ML G TUBE SCH (09:33)
[2019-01-07] MEDS ORDERED: Furosemide IV* 10 MG/ML VIAL (40 MG) IV ONE (09:41)
[2019-01-07] MEDS ORDERED: acetaZOLAMIDE VIAL* 500 MG in NS 0.9% 50 ML* 50 ML IVPB SCH (10:00)
--- NOTE | 2019-01-07 11:23 | PN ---
Date of Service: 01/07/19 Critical Care Services: Significant improvement last 12 hours after deterioration late yesterday afternoon. Vital Signs: Temp Pulse Resp BP SpO2 FiO2 37.9 C 87 11 120/63 98 65 01/07/19 10:16 01/07/19 10:16 01/07/19 08:00 01/07/19 10:16 01/07/19 10:16 01/07 07:44 Physical Exam: Gen: awake, appropriate, non-toxic HEENT: NCAT, intubated, PERRL Lungs: coarse entry, well aerated Cardiac: s1s2 regular Abdomen: soft, NT, ND, +BS Extremities: trace edema Neuro: grossly intact Fluid Balance (Past 24 Hours): I= O= Net Intake & Output 01/05/19 01/06/19 01/07/19 01/08/19 06:59 06:59 06:59 06:59 Intake Total 2532 1217 2106.8 300 Output Total 1550 4310 2740 230 Balance 982 -3093 -633.2 70 Weight 55.267 kg 59.9 kg 59.9 kg Intake: IV Fluids 2046 480 1132.8 28 Albumin 705 Diamox 61 NS 24 Normal Saline 2046 480 antibiotics 114 potassium phosphate 215 precedex 37.8 4 IVPB 114 248 545 KCl 118 Mag 2g 50 antibiotics 114 130 65 natacha gluconate 130 potassium phosphate 255 precedex 45 Medicated IV 372 364 87 CC - Propofol/Diprivan 372 364 87 Tube Feeding 125 302 232 Tube Feeding Flush Amount 40 40 Output: Valera 1550 4295 2740 230 Tube Feeding Residual 15 Amount Wasted Labs: Laboratory Results - last 24 hr 01/06/19 01/06/19 01/06/19 13:13 14:58 15:25 WBC RBC Hgb Hct MCV MCH MCHC RDW Plt Count MPV Neut % (Auto) Lymph % (Auto) [place] % (Auto) Eos % (Auto) Baso % (Auto) Absolute Neuts (auto) Absolute Lymphs (auto) Absolute Monos (auto) Absolute Eos (auto) Absolute Basos (auto) Absolute Nucleated RBC Nucleated RBC % Patient Temperature ABG pH ABG pH (Temp Correct) ABG pCO2 ABG pCO2 (Temp Corrct ABG pO2 ABG pO2 (Temp Correct ABG HCO3 ABG O2 Saturation ABG Base Excess VBG pH 7.60 H VBG pCO2 36 L VBG pO2 39.0 VBG HCO3 34.5 H VBG O2 Saturation 82.0 H VBG Base Excess 12.9 H Respiration Rate Ventilator Type Vent Mode FiO2 Inspiratory Time PEEP Pressure Support Pressure Control EPAP IPAP BiPAP Sodium 146 H Potassium 3.3 L Chloride 103 Carbon Dioxide 35 H Anion Gap 8 BUN 13 Creatinine 0.66 Est GFR ( Amer) 109.4 Est GFR (Non-Af Amer) 90.5 BUN/Creatinine Ratio 19.7 Glucose 92 POC Glucose (mg/dL) 94 Calcium 10.0 Ionized Calcium Phosphorus 1.8 L Magnesium 2.9 H Total Bilirubin 0.60 AST 20 ALT 26 Alkaline Phosphatase 43 Total Protein 6.1 L Albumin 3.1 L Globulin 3.0 Albumin/Globulin Ratio 1.0 TSH Free T4 01/06/19 01/06/19 01/07/19 17:06 18:12 05:38 WBC RBC Hgb Hct MCV MCH MCHC RDW Plt Count MPV Neut % (Auto) Lymph % (Auto) [place] % (Auto) Eos % (Auto) Baso % (Auto) Absolute Neuts (auto) Absolute Lymphs (auto) Absolute Monos (auto) Absolute Eos (auto) Absolute Basos (auto) Absolute Nucleated RBC Nucleated RBC % Patient Temperature Not Reportable ABG pH 7.61 H* ABG pH (Temp Correct) Not Reportable ABG pCO2 37 ABG pCO2 (Temp Corrct Not Reportable ABG pO2 71 L ABG pO2 (Temp Correct Not Reportable ABG HCO3 36.4 H ABG O2 Saturation 97.7 ABG Base Excess 14.7 H VBG pH VBG pCO2 VBG pO2 VBG HCO3 VBG O2 Saturation VBG Base Excess Respiration Rate Not Reportable Ventilator Type Not Reportable Vent Mode Not Reportable FiO2 80 Inspiratory Time Not Reportable PEEP Not Reportable Pressure Support Not Reportable Pressure Control Not Reportable EPAP Not Reportable IPAP Not Reportable BiPAP Not Reportable Sodium 146 H Potassium 3.4 L Chloride 110 Carbon Dioxide 30 Anion Gap 6 BUN 16 Creatinine 0.69 Est GFR ( Amer) 104.0 Est GFR (Non-Af Amer) 85.9 BUN/Creatinine Ratio 23.2 H Glucose 113 H POC Glucose (mg/dL) 97 Calcium 9.2 Ionized Calcium Phosphorus 2.5 Magnesium 2.6 Total Bilirubin 0.60 AST 20 ALT 19 Alkaline Phosphatase 39 Total Protein 5.9 L Albumin 3.5 Globulin 2.4 Albumin/Globulin Ratio 1.5 TSH 3.73 Free T4 0.94 01/07/19 01/07/19 05:38 05:38 WBC 5.4 RBC 2.82 L Hgb 9.1 L Hct 28 L MCV 98 H MCH 32 H MCHC 33 RDW 14 Plt Count 209 MPV 8.6 Neut % (Auto) 67.7 Lymph % (Auto) 23.7 [place] % (Auto) 6.6 Eos % (Auto) 1.7 Baso % (Auto) 0.3 Absolute Neuts (auto) 3.6 Absolute Lymphs (auto) 1.3 Absolute Monos (auto) 0.4 Absolute Eos (auto) 0.1 Absolute Basos (auto) 0.0 Absolute Nucleated RBC 0.0 Nucleated RBC % 0.0 Patient Temperature ABG pH ABG pH (Temp Correct) ABG pCO2 ABG pCO2 (Temp Corrct ABG pO2 ABG pO2 (Temp Correct ABG HCO3 ABG O2 Saturation ABG Base Excess VBG pH VBG pCO2 VBG pO2 VBG HCO3 VBG O2 Saturation VBG Base Excess Respiration Rate Ventilator Type Vent Mode FiO2 Inspiratory Time PEEP Pressure Support Pressure Control EPAP IPAP BiPAP Sodium Potassium Chloride Carbon Dioxide Anion Gap BUN Creatinine Est GFR ( Amer) Est GFR (Non-Af Amer) BUN/Creatinine Ratio Glucose POC Glucose (mg/dL) Calcium Ionized Calcium 1.18 Phosphorus Magnesium Total Bilirubin AST ALT Alkaline Phosphatase Total Protein Albumin Globulin Albumin/Globulin Ratio TSH Free T4 Studies: CXR with continued clearing, still layering effusions bilaterally Nutrition: Kira TF Impression: 63 y/o female acute hypoxic respiratory failure with LLL infiltrate and now resolving hypervolemia. Plan: Acute Hypoxic Respiratory Failure -good response to APRV, FIO2 down to 50% today from 85% 12 hrs ago with good lung recruitment on CXR and regression of total lung water. LLL infiltrate less dense overall. Negative balance 3500 cc last 24 hrs and currently awake with a MAP of 90, more lasix and continue diamox for her diuretic-induced metabolic alkalosis. Infiltrate slow to regress but is regressing [id number] when accounting for overall lung water. Given the not so readily explained period of worsening hypoxia last PM and general fluid avidity will recheck ECHO in this patient with known complex CV history. Pneumonia - continue Abx as above, WBC normal, low grade temp this AM. Metabolic Alkalosis - diamox, still needs more diruesis. Electrolyte Abnormalities - hypokalemia and hypophosphatemia in part from her alkalosis, repleting and correcting alkalosis should fully correct. Continue TF, GI/DVT prophylaxis and time. D/W in detail throughout the day yesterday and again this AM including going over the CXR progression with him. he voiced understanding and appreciation for the care and explanations. Critical Care Time: 45 minutes
[2019-01-07 14:45] LABS: Albumin 3.7 g/dL (3.2-5.2); Magnesium 2.6 mg/dL (1.9-2.7); Total Bilirubin 0.5 mg/dL (0.2-1.0)
[2019-01-07 14:51] LABS: Albumin/Globulin Ratio 1.3 (1-3); BUN/Creatinine Ratio 24.7 (8-20); EGFR African American 97.4 (>60); EGFR Non-African American 80.5 (>60); Globulin 2.8 g/dL (2-4); Phosphorus 3.3 mg/dL (2.5-5.0); Total Protein 6.5 g/dL (6.4-8.9)
[2019-01-07] MEDS ORDERED: CALCIUM GLUCONATE IV ONE (15:00)
[2019-01-07] MEDS ORDERED: NS 0.9% IV ONE (15:00)
[2019-01-07] MEDS: Dexmedetomidine* 1,000 MCG in NS 0.9% 250 ML* 240 ML IV SCH (16:17)
[2019-01-07] MEDS: Acetaminophen ADULT LIQ* 650 MG/20.3 ML UDC PO PRN (16:18)
[2019-01-07] MEDS: Enoxaparin(*) 40 MG/0.4 ML SYR SUBCUT SCH (18:29)
--- NOTE | 2019-01-07 20:20 | PN ---
Progress Note - Progress Note Date of Service: 01/07/19 Note: I was notified by nursing that the patient's calcium gluconate infiltrated ( possibly 50-75% of the bag). After speaking with pharmacy the decision was made to order hyaluronidase 25.5unit to be injected subcutaneously divided in 5 separate injections. I have informed the patient and her family. She will also have warm compresses as needed.
[2019-01-07] MEDS ORDERED: HYALURONIDASE HUMAN INTRADERM ONE (21:00)
[2019-01-07] MEDS ORDERED: SODIUM CHLORIDE 0.9% INTRADERM ONE (21:00)
[2019-01-08] MEDS ORDERED: LORazepam INJ* 2 MG/ML 1 ML VIAL IV PUSH ONE (00:05)
[2019-01-08] MEDS ORDERED: Lorazepam PYXIS KEY PRN (00:06)
[2019-01-08] MEDS ORDERED: Lorazepam PYXIS KEY ONE (00:08)
[2019-01-08] MEDS: Cefepime 1 GM in Dextrose(*) 1 GM/50 ML BAG IV SCH ×2 (00:11→11:47)
[2019-01-08] MEDS: Chlorhexidine MOUTHWASH 0.12%* 15 ML UDC TOPICAL SCH ×6 (00:12→21:00)
[2019-01-08] MEDS: Insulin LISPRO* 1 UNITS UNIT SUBCUT SCH ×4 (00:37→18:06)
[2019-01-08] MEDS: Albuterol/Ipratropium NEB.SOL* Albuterol 2.5 MG/Ipratropium 0.5 MG 3 ML INH SCH ×4 (01:23→19:38)
[2019-01-08] MEDS: acetaZOLAMIDE VIAL* 500 MG in NS 0.9% 50 ML* 50 ML IVPB SCH ×2 (03:25→17:04)
[2019-01-08] MEDS: Acetaminophen ADULT LIQ* 650 MG/20.3 ML UDC PO PRN ×2 (05:01→12:47)
[2019-01-08 06:19] LABS: Calcium 10.6 mg/dL (8.6-10.3); Magnesium 2.6 mg/dL (1.9-2.7); Potassium 3.7 mmol/L (3.5-5.0)
[2019-01-08 06:24] LABS: BUN/Creatinine Ratio 27.6 (8-20); EGFR Non-African American 76.9 (>60); Phosphorus 2.6 mg/dL (2.5-5.0)
[2019-01-08] MEDS: Famotidine SUSP ORALSYR 8 MG/ML G TUBE SCH (09:33)
[2019-01-08] MEDS: Dofetilide CAP* 125 MCG PO SCH ×2 (09:33→21:00)
[2019-01-08] MEDS ORDERED: Furosemide IV* 10 MG/ML VIAL (40 MG) IV ONE (09:41)
--- NOTE | 2019-01-08 10:03 | ECHO ---
*[facility]* [place] [address] Fax #: [phone] Limited Transthoracic Echocardiogram Patient: Cathleen Bailey : 1955 Study Date: 01/08/2019 Age: 63 Gender: F HR: 69 bpm Height: 66 in /167.6 cm BSA: 1.68 m^2 Weight: 131.7 lb /59.9 kg BMI: 21.3 kg/m^2 *[employer] Systems Operations Manager: * Felecia Banks [facility] *Referring Physician: * Marshal Craig *Reading Physician: * Paolo Olguin MD Indications: Congestive Heart Failure. History: Atrial fibrillation. Functional status: Following treatment plan for sleep apnea. Risk factors: Hypertension. Labs, prior tests, procedures, and surgery: Catheterization with coronary intervention (08/20/2013). There was a stenosis in the left anterior descending coronary artery which was treated with a bare-metal stent. Valve surgery (10/07/2013). Mitral annuloplasty ([id number], [id number]). Conclusions Summary: - Left ventricle: Systolic function is normal. The estimated ejection fraction is 60-65%. Wall motion is normal; there are no regional wall motion abnormalities. - Right ventricle: Systolic function is normal. Systolic pressure cannot be accurately determined, but appears to be increased. - Ventricular septum: There is septal flattening of the interventricular septum consistent with RV volume or pressure overload. - Limited study to evaluate left ventricle and right ventricle function. Study data: Transthoracic echocardiogram, limited study. Procedure: Transthoracic echocardiography was performed. Image quality was fair. The study was technically limited due to Patient on ventilator. Location: ICU Patient status: Inpatient. Patient room number: ICU-05. Rhythm: Normal sinus rhythm. Findings Left ventricle: The cavity size is below normal. Systolic function is normal. The estimated ejection fraction is 60-65%. Wall motion is normal; there are no regional wall motion abnormalities. Right ventricle: The cavity size is moderately dilated. Systolic function is normal. Systolic pressure cannot be accurately determined, but appears to be increased. Ventricular septum: There is septal flattening of the interventricular septum consistent with RV volume or pressure overload. Measurements Tricuspid valve Value Ref TR peak v 2.4 m/sec <=2.8 Peak RV-RA grad, S 23 mm Hg ----- Legend: (L) and (H) linda values outside specified reference range. Prepared and electronically signed by Paolo Olguin MD 01/08/2019 10:02
[2019-01-08] MEDS: Dexmedetomidine* 1,000 MCG in NS 0.9% 250 ML* 240 ML IV SCH (10:16)
--- NOTE | 2019-01-08 10:57 | PN ---
Date of Service: 01/08/19 Critical Care Services: Stable overnight on slightly elevated Precedex dose. Vital Signs: Temp Pulse Resp BP SpO2 FiO2 37.2 C 61 11 100/55 99 35 01/08/19 10:00 01/08/19 10:00 01/08/19 10:00 01/08/19 10:00 01/08/19 10:00 01/08 08:00 Physical Exam: Gen: sedated but rousable this AM, appears non-toxic HEENT: NCAT, PERRL Lungs: coarse entry Cardiac: S1S2 regular Abdomen: soft, NT, ND, +BS Extremities: trace edema Neuro: lightly sedated, grossly intact Fluid Balance (Past 24 Hours): I= O= Net Intake & Output 01/06/19 01/07/19 01/08/19 01/09/19 06:59 06:59 06:59 06:59 Intake Total 1217 2106.8 1676 Output Total 4310 2740 2590 74 Balance -3093 -633.2 -914 -74 Weight 59.9 kg 59.9 kg 57.7 kg Intake: IV Fluids 480 1132.8 637 Albumin 705 Diamox 61 NS 551 Normal Saline 480 82 antibiotics 114 potassium phosphate 215 precedex 37.8 4 IVPB 248 545 337 Diamox 68 KCl 118 Mag 2g 50 antibiotics 130 65 64 natacha gluconate 130 205 potassium phosphate 255 precedex 45 Medicated IV 364 87 40 CC - Propofol/Diprivan 364 87 PRECEDEX 40 Tube Feeding 125 302 562 Tube Feeding Flush Amount 40 100 Output: Valera 4295 2740 2590 74 Tube Feeding Residual 15 Amount Wasted Labs: Laboratory Results - last 24 hr 01/06/19 01/07/19 01/07/19 15:06 00:26 12:01 Sodium Potassium Chloride Carbon Dioxide Anion Gap BUN Creatinine Est GFR ( Amer) Est GFR (Non-Af Amer) BUN/Creatinine Ratio Glucose POC Glucose (mg/dL) 94 110 H 123 H Calcium Ionized Calcium Phosphorus Magnesium Total Bilirubin AST ALT Alkaline Phosphatase Total Protein Albumin Globulin Albumin/Globulin Ratio 01/07/19 01/07/19 01/07/19 14:15 14:15 18:25 Sodium 144 Potassium 4.0 Chloride 111 Carbon Dioxide 26 Anion Gap 7 BUN 18 Creatinine 0.73 Est GFR ( Amer) 97.4 Est GFR (Non-Af Amer) 80.5 BUN/Creatinine Ratio 24.7 H Glucose 136 H POC Glucose (mg/dL) 137 H Calcium 9.0 Ionized Calcium 1.14 L Phosphorus 3.3 Magnesium 2.6 Total Bilirubin 0.50 AST 22 ALT 22 Alkaline Phosphatase 43 Total Protein 6.5 Albumin 3.7 Globulin 2.8 Albumin/Globulin Ratio 1.3 01/08/19 01/08/19 05:51 05:51 Sodium 146 H Potassium 3.7 Chloride 114 H Carbon Dioxide 27 Anion Gap 5 BUN 21 Creatinine 0.76 Est GFR ( Amer) 93.0 Est GFR (Non-Af Amer) 76.9 BUN/Creatinine Ratio 27.6 H Glucose 135 H POC Glucose (mg/dL) Calcium 10.6 H Ionized Calcium 1.39 H Phosphorus 2.6 Magnesium 2.6 Total Bilirubin AST ALT Alkaline Phosphatase Total Protein Albumin Globulin Albumin/Globulin Ratio Studies: CXR with further clearing LLL infiltrate, still excess lung water. Nutrition: TF held overnight for some reflux, will restart Impression: 63 y/o female admitted with LLL pneumonia and acute respiratory failure. Currently with resolving hypervolemia and improving CXR and vent parameters daily. Looking at extubation for tomorrow. Plan: Acute Hypoxic Respiratory Failure- pneumonia clearing on CXR, small fevers but nothing sustained. Hypervolemia resolving and will continue to diurese as tolerated. The CXR still shows water. Repeat ECHO this AM very helpful, continues to show RV dilatation and hypokinesis but now with underfilled LV. Will attempt a little more water off, if she resists she may need a little inotrope to get us through the final bit of water needed to get her extubated successfully or she may just benefit from a little more time to let the inflammation subside and leave her chest less leaky. In either event I hope to extubate in the next 24-48 hrs. Pneumonia - clinically and radiographically resolving, Abx complete tomorrow night. Metabolic Alkalosis - resolved. Another dose of diamox while trying another dose of lasix and then likely DC. Electrolyte Abnormalities - repleting as needed. Continue TF, GI/DVT prophylaxis and time. D/W in detail at bedside. Critical Care Time: 40 minutes
[2019-01-08] MEDS: Enoxaparin(*) 40 MG/0.4 ML SYR SUBCUT SCH (17:57)
[2019-01-09] MEDS: Chlorhexidine MOUTHWASH 0.12%* 15 ML UDC TOPICAL SCH ×3 (00:14→08:08)
[2019-01-09] MEDS: Insulin LISPRO* 1 UNITS UNIT SUBCUT SCH ×2 (00:14→06:36)
[2019-01-09] MEDS: Cefepime 1 GM in Dextrose(*) 1 GM/50 ML BAG IV SCH ×2 (00:14→12:51)
[2019-01-09] MEDS: Albuterol/Ipratropium NEB.SOL* Albuterol 2.5 MG/Ipratropium 0.5 MG 3 ML INH SCH ×2 (01:13→07:38)
[2019-01-09] MEDS: Acetaminophen ADULT LIQ* 650 MG/20.3 ML UDC PO PRN ×2 (01:28→08:08)
[2019-01-09] MEDS: acetaZOLAMIDE VIAL* 500 MG in NS 0.9% 50 ML* 50 ML IVPB SCH (04:08)
[2019-01-09 05:00] LABS: BUN/Creatinine Ratio 36.5 (8-20); Calcium 10.2 mg/dL (8.6-10.3); EGFR African American 95.9 (>60); EGFR Non-African American 79.3 (>60); Magnesium 2.5 mg/dL (1.9-2.7); Phosphorus 2.2 mg/dL (2.5-5.0); Potassium 3.5 mmol/L (3.5-5.0)
[2019-01-09] MEDS: Dexmedetomidine* 1,000 MCG in NS 0.9% 250 ML* 240 ML IV SCH (08:02)
[2019-01-09] MEDS: Dofetilide CAP* 125 MCG PO SCH ×2 (08:08→21:41)
[2019-01-09] MEDS: Famotidine SUSP ORALSYR 8 MG/ML G TUBE SCH (08:08)
--- NOTE | 2019-01-09 10:52 | PN ---
Date of Service: 01/09/19 Critical Care Services: Awake on rounds and orders for extubation placed. Vital Signs: Temp Pulse Resp BP SpO2 FiO2 37.4 C 91 16 96/51 97 30 01/09/19 10:15 01/09/19 10:15 01/09/19 10:00 01/09/19 10:15 01/09/19 10:15 01/09 08:00 Physical Exam: Gen: NAD, intubated. HEENT: NCAT, PERRL Lungs: coarse entry Cardiac: S1S2 regular Abdomen: soft, NT, ND, +BS Extremities: no edema Neuro: grossly non-focal Fluid Balance (Past 24 Hours): I= O= Net Intake & Output 01/07/19 01/08/19 01/09/19 01/10/19 06:59 06:59 06:59 06:59 Intake Total 2106.8 1676 583.4 50 Output Total 2740 2590 1590 80 Balance -633.2 -914 -1006.6 -30 Weight 59.9 kg 57.7 kg 56.2 kg Intake: IV Fluids 1132.8 637 191 Albumin 705 Cefepime 114 Diamox 61 NS 551 121 Normal Saline 82 70 potassium phosphate 215 precedex 37.8 4 IVPB 545 337 277 Cefepime 65 64 Diamox 68 159 Mag 2g 50 NS 118 natacha gluconate 130 205 potassium phosphate 255 precedex 45 Medicated IV 87 40 35.4 CC - Propofol/Diprivan 87 PRECEDEX 40 35.4 Tube Feeding 302 562 Tube Feeding Flush Amount 40 100 80 50 Output: Urine 25 Valera 2740 2590 1590 55 Tube Feeding Residual 0 Amount Wasted Labs: Laboratory Results - last 24 hr 01/08/19 01/08/19 01/09/19 11:41 17:54 00:10 Sodium Potassium Chloride Carbon Dioxide Anion Gap BUN Creatinine Est GFR ( Amer) Est GFR (Non-Af Amer) BUN/Creatinine Ratio Glucose POC Glucose (mg/dL) 110 H 94 93 Calcium Ionized Calcium Phosphorus Magnesium 01/09/19 01/09/19 01/09/19 04:20 04:25 06:35 Sodium 146 H Potassium 3.5 Chloride 113 H Carbon Dioxide 25 Anion Gap 8 BUN 27 H Creatinine 0.74 Est GFR ( Amer) 95.9 Est GFR (Non-Af Amer) 79.3 BUN/Creatinine Ratio 36.5 H Glucose 107 H POC Glucose (mg/dL) 97 Calcium 10.2 Ionized Calcium 1.26 Phosphorus 2.2 L Magnesium 2.5 Studies: CXR with resolution of LLL infiltrate, well-expanded bilaterally Nutrition: TF on hold for extubation Impression: 63 y/o female with resolving respiratory failure secondary to pneumonia and with excellent SBT and CXR, ready to extubate. Plan: Acute Hypoxic Respiratory Failure - resolving. As dry as I can take her with big RV and underfilled LV on PPV. Kidneys still holding up but no more room. Meets all extubation criteria. Extubate. Pneumonia - resolved. Abx complete today. Hypervolemia - resolved. Electrolyte abnormalities - repleting actively. GI/DVT prophylaxis continues, swallow evaluation today. D/W and patient in detail. Critical Care Time: 40 minutes
[2019-01-09] MEDS ORDERED: Potassium Phosphate IV* 15 MMOLE in NS 0.9% 250 ML* 250 ML IVPB ONE (11:01)
[2019-01-09] MEDS ORDERED: Furosemide IV* 10 MG/ML VIAL (40 MG) ONE (14:57)
[2019-01-09] MEDS ORDERED: Furosemide IV* 10 MG/ML VIAL (40 MG) IV ONE (15:30)
[2019-01-09] MEDS: Enoxaparin(*) 40 MG/0.4 ML SYR SUBCUT SCH (18:13)
[2019-01-09] MEDS: Albuterol/Ipratropium NEB.SOL* Albuterol 2.5 MG/Ipratropium 0.5 MG 3 ML INH PRN (22:03)
[2019-01-10 05:11] LABS: Albumin 3.7 g/dL (3.2-5.2); Albumin/Globulin Ratio 1.2 (1-3); BUN/Creatinine Ratio 38.7 (8-20); Calcium 9.7 mg/dL (8.6-10.3); EGFR African American 94.4 (>60); Globulin 3.2 g/dL (2-4); Magnesium 2.4 mg/dL (1.9-2.7); Phosphorus 3.1 mg/dL (2.5-5.0); Potassium 3.7 mmol/L (3.5-5.0); Total Bilirubin 0.5 mg/dL (0.2-1.0); Total Protein 6.9 g/dL (6.4-8.9)
[2019-01-10] MEDS: Dofetilide CAP* 125 MCG PO SCH ×2 (10:40→20:47)
[2019-01-10] MEDS: Famotidine SUSP ORALSYR 8 MG/ML G TUBE SCH (10:45)
--- NOTE | 2019-01-10 11:22 | PN ---
Date of Service: 01/10/19 Critical Care Services: Tolerated extubation but has paroxysms of aspiration. Currently comfortable on HFNC with good SaO2. Vital Signs: Temp Pulse Resp BP SpO2 FiO2 37.7 C 82 29 101/57 97 100 01/10/19 10:31 01/10/19 10:31 01/10/19 10:57 01/10/19 10:31 01/10/19 10:31 01/10 08:00 Physical Exam: Gen: NAD but exhausted overall. Self-suctioning quite well. HEENT:NCAT, PERRL Lungs: rhocnchi Cardiac: S1S2 regular Abdomen: soft, NT, ND, +BS Extremities: no edema Neuro: A&O, grossly non-focal Fluid Balance (Past 24 Hours): I= O= Net Intake & Output 01/08/19 01/09/19 01/10/19 01/11/19 06:59 06:59 06:59 06:59 Intake Total 1676 583.4 573 Output Total 2590 1590 1280 85 Balance -914 -1006.6 -707 -85 Weight 57.7 kg 56.2 kg 54.5 kg Intake: IV Fluids 637 191 60 NS 551 121 60 Normal Saline 82 70 precedex 4 IVPB 337 277 259 Cefepime 64 Diamox 68 159 NS 118 natacha gluconate 205 potassium phosphate 259 Medicated IV 40 35.4 54 PRECEDEX 40 35.4 54 Oral 150 Tube Feeding 562 Tube Feeding Flush Amount 100 80 50 Output: Urine 25 Valera 2590 1590 1255 85 Tube Feeding Residual 0 Amount Wasted Other: Estimated Void Large # Bowel Movements 1 Estimated Stool Amount Large Medium # Voids 1 Labs: Laboratory Results - last 24 hr 01/08/19 01/10/19 01/10/19 00:34 04:37 04:37 Sodium 148 H Potassium 3.7 Chloride 113 H Carbon Dioxide 25 Anion Gap 10 BUN 29 H Creatinine 0.75 Est GFR ( Amer) 94.4 Est GFR (Non-Af Amer) 78.0 BUN/Creatinine Ratio 38.7 H Glucose 114 H POC Glucose (mg/dL) 125 H Calcium 9.7 Ionized Calcium 1.05 L Phosphorus 3.1 Magnesium 2.4 Total Bilirubin 0.50 AST 23 ALT 26 Alkaline Phosphatase 67 Total Protein 6.9 Albumin 3.7 Globulin 3.2 Albumin/Globulin Ratio 1.2 Nutrition: Pt deferrred on swallow evaluation yesterday, remains at risk to aspirate and has quite a bit of reflux. Holding on placement of NGT and TF for the moment hoping to maximize recovery of her swallow rather than exacerbate things with an NGT. 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 Clearly is aspirating and likely was so at home to some extent and likely was the source of her pneumonia in the first place ( aspiration of the bowel prep) Trying to avoid any reintubation, will only set back and make less likely any recovery of [place] swallow to prior baseline. This was discussed in detail with the patient and her who both voiced understanding and agreement with a plan to try and avoid any reintubation until life immediately hung in the balance. She felt the same way about tracheostomy. Plan: Acute Hypoxic Respiratory Failure - resolving, aspirating. Hoping that swallow will improve with time and that any further instrumentation can be avoided. Best opportunity for recovery of [place] swallow is as above. At 's request I have placed a call to patient's myotonic dystrophy Neurologist, Dr. Gilberto Nicholas at [place] at [phone]. I am awaiting his return call. Pneumonia - clinically resolved and no new fever. Abx completed within the last 12 hrs. Electrolyte Abnormalities - repleted as needed. Nutrition will be next susan in coming days. May ultimately require placement of Kaofeed but may do better with bolus feeding and upright posture than she did with continuous. Time will tell. GI/DVT prophylaxis on board. Tikosyn tolerated PO with some ana and must be prioritized as afib RVR here will vastly complicate the situation. D/W pt and in detail at bedside and again on rounds. voiced understanding and appreciation for the care as well as agreement with the plan.
[2019-01-10] MEDS: Dexmedetomidine* 1,000 MCG in NS 0.9% 250 ML* 240 ML IV SCH (15:53)
[2019-01-10] MEDS: Enoxaparin(*) 40 MG/0.4 ML SYR SUBCUT SCH (18:26)
[2019-01-11 04:05] LABS: ABS Eosinophils 0.3 10^3/ul (0-0.6); ABS Lymphocytes 1.1 10^3/ul (1.0-4.8); ABS Monocytes 0.6 10^3/ul (0-0.8); ABS Neutrophils 8.7 10^3/ul (1.5-7.7); Eosinophil % 2.7 %; Hematocrit 34 % (35-47); Hemoglobin 11.2 g/dL (12.0-16.0); Mean Corpuscular HGB Conc 33 g/dL (31-36); Mean Corpuscular Hemoglobin 33 pg (27-31); Mean Corpuscular Volume 99 fL (80-97); Platelet Count 377 10^3/uL (150-450); Red Blood Count 3.42 10^6 /uL (3.70-4.87); Red Cell Distribution Width 13 % (10-15); White Blood Count 10.7 10^3/uL (3.5-10.8)
[2019-01-11 04:25] LABS: BUN/Creatinine Ratio 53.6 (8-20); Calcium 10.6 mg/dL (8.6-10.3); EGFR Non-African American 85.9 (>60); Magnesium 2.7 mg/dL (1.9-2.7); Phosphorus 2.5 mg/dL (2.5-5.0); Potassium 3.9 mmol/L (3.5-5.0)
[2019-01-11] MEDS: Lactated Ringers 1000 ML Bag* 1,000 ML IV SCH ×2 (08:23→21:32)
[2019-01-11] MEDS: Dofetilide CAP* 125 MCG PO SCH ×2 (10:32→21:11)
[2019-01-11] MEDS: Famotidine SUSP ORALSYR 8 MG/ML G TUBE SCH (10:42)
[2019-01-11] MEDS: Insulin LISPRO* 1 UNITS UNIT SUBCUT SCH (11:55)
--- NOTE | 2019-01-11 13:48 | PN ---
Progress Note - Progress Note Date of Service: 01/11/19 - Progress note Note: Pt seen and examined at bedside. No acute events o/n. Pt reports feeling tired, denies SOB. Has been suctioning herself intermittentlu. Pt with poor intake. Active Medications Generic Name Dose Route Start Last Admin Trade Name Freq PRN Reason Stop Dose Admin Acetaminophen 650 mg 01/04/19 17:12 01/09/19 08:08 Tylenol Adult Liq* PO 650 mg Q6H PRN Administration MILD PAIN or TEMP > 100.4 Albuterol/Ipratropium 1 neb 01/06/19 18:14 01/09/19 22:03 Duoneb (Albuterol 2.5 Mg/Ipratropium 0.5 Mg) INH 1 neb Q4H PRN Administration SOB/WHEEZING Dextrose 25 ml 01/05/19 09:53 Dextrose 50% Vial 50 Ml* IV PUSH .FOR FS < 60 - SS PRN FS < 60 Dofetilide 125 mcg 01/02/19 21:00 01/11/19 10:32 Tikosyn Cap* PO 125 mcg BID ONEYDA Administration Enoxaparin Sodium 40 mg 01/04/19 18:00 01/10/19 18:26 Lovenox(*) SUBCUT 40 mg Q24H ONEYDA Administration Famotidine 20 mg 01/05/19 09:00 01/11/19 10:42 Pepcid Susp 8mg/Ml G TUBE 20 mg DAILY ONEYDA Administration Dexmedetomidine HCl 1,000 mcg/ 250 mls @ 0 mls/hr 01/06/19 10:00 01/10/19 15: 53 Sodium Chloride IV 2.9 mls/hr Q24H ONEYDA Administration Protocol Per Protocol Lactated Ringer's 1,000 mls @ 75 mls/hr 01/11/19 09:00 01/11/19 08:23 Lactated Ringers 1000 Ml Bag* IV 75 mls/hr PER RATE ONEYDA Administration Miscellaneous 1 ea 01/08/19 00:06 Ativan Pyxis Saha N/A .PYXIS SAHA PRN PER PROTOCOL Vital Signs Temp Pulse Resp BP Pulse Ox 99.9 F 81 24 132/57 96 01/11/19 12:00 01/11/19 12:00 01/11/19 12:00 01/11/19 12:00 01/11/19 12:00 O/E: Pt in NAD, thin female, appears weak HEENT: PERRLA Lungs: Dimnished air entry at bases, no wheeze CVS: S1, S2+ Abd: Soft, BS+ Ext: Normal ROM Neuro: No focal deficits Skin: No rash Laboratory Results - last 24 hr 01/11/19 01/11/19 01/11/19 03:45 03:45 03:45 WBC 10.7 RBC 3.42 L Hgb 11.2 L Hct 34 L MCV 99 H MCH 33 H MCHC 33 RDW 13 Plt Count 377 MPV 8.0 Neut % (Auto) 81.7 Lymph % (Auto) 10.0 [place] % (Auto) 5.3 Eos % (Auto) 2.7 Baso % (Auto) 0.3 Absolute Neuts (auto) 8.7 H Absolute Lymphs (auto) 1.1 Absolute Monos (auto) 0.6 Absolute Eos (auto) 0.3 Absolute Basos (auto) 0.0 Absolute Nucleated RBC 0.0 Nucleated RBC % 0.0 Sodium 153 H Potassium 3.9 Chloride 115 H Carbon Dioxide 28 Anion Gap 10 BUN 37 H Creatinine 0.69 Est GFR ( Amer) 104.0 Est GFR (Non-Af Amer) 85.9 BUN/Creatinine Ratio 53.6 H Glucose 116 H Calcium 10.6 H Ionized Calcium 1.27 Phosphorus 2.5 Magnesium 2.7 I/R: 63 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 Clearly is aspirating and likely was so at home to some extent and likely was the source of her pneumonia in the first place ( aspiration of the bowel prep). 1. Acute Hypoxic Respiratory Failure s/p extubation after intubated for 7 days 2. Coughing while eating, still with concern for aspiration, pt declined swallow eval yesterday 3.PNA 4. Hypernatremia 5. Hypercalcemia Acute Hypoxic Respiratory Failure - improving, ? aspirating. Feed with assistance. Will order pureed diet and advance as tolerated. Will titrate FiO2 as tolerated. Pt able to self suction. Pneumonia - clinically resolved and no new fever. Abx completed Electrolyte Abnormalities - repleted as needed. Will start fluids for hypernatremia, pt appearing dehydrated clinically. Will monitor sodium and calcium closely. Pt not able to get enough nutrition orally. May ultimately require placement of Kaofeed but may do better with bolus feeding and upright posture than she did with continuous. Will discuss with family if not improved. A.Fib with RVR, rate controlled. C/w Tikosyn. Pt wiht muscular dystrophy, will need PT. OOB to chair as tolerated. GI/DVT prophylaxis D/W pt and in detail at bedside
[2019-01-11] MEDS: Enoxaparin(*) 40 MG/0.4 ML SYR SUBCUT SCH (18:22)
[2019-01-11] MEDS: Dexmedetomidine* 1,000 MCG in NS 0.9% 250 ML* 240 ML IV SCH (19:24)
[2019-01-12] MEDS ORDERED: LORazepam INJ* 2 MG/ML 1 ML VIAL IV PUSH PRN (00:20)
[2019-01-12] MEDS ORDERED: Lorazepam PYXIS KEY PRN (00:20)
[2019-01-12 05:44] LABS: ABS Eosinophils 0.1 10^3/ul (0-0.6); ABS Lymphocytes 0.9 10^3/ul (1.0-4.8); ABS Monocytes 0.7 10^3/ul (0-0.8); ABS Neutrophils 8.8 10^3/ul (1.5-7.7); Eosinophil % 1.4 %; Hematocrit 29 % (35-47); Hemoglobin 9.5 g/dL (12.0-16.0); Lymphocyte % 8.7 %; Mean Corpuscular HGB Conc 33 g/dL (31-36); Mean Corpuscular Hemoglobin 32 pg (27-31); Mean Corpuscular Volume 99 fL (80-97); Mean Platelet Volume 7.6 fL (7.4-10.4); Platelet Count 343 10^3/uL (150-450); Red Blood Count 2.93 10^6 /uL (3.70-4.87); Red Cell Distribution Width 14 % (10-15); White Blood Count 10.6 10^3/uL (3.5-10.8)
[2019-01-12 06:08] LABS: Calcium 9.6 mg/dL (8.6-10.3)
[2019-01-12 06:13] LABS: EGFR African American 150.8 (>60); EGFR Non-African American 124.6 (>60)
[2019-01-12] MEDS ORDERED: D5W 500 ML BAG* 500 ML IV SCH (07:00)
[2019-01-12] MEDS ORDERED: Cefepime 1 GM in Dextrose(*) 1 GM/50 ML BAG IV SCH (12:00)
[2019-01-12] MEDS: Albuterol/Ipratropium NEB.SOL* Albuterol 2.5 MG/Ipratropium 0.5 MG 3 ML INH PRN ×2 (12:07→19:16)
[2019-01-12] MEDS: Acetylcysteine INHALATION SOL* 200 MG/ML NEB.SOLN 10 ML INH SCH ×2 (12:08→19:17)
[2019-01-12] MEDS: Famotidine SUSP ORALSYR 8 MG/ML G TUBE SCH (12:31)
[2019-01-12] MEDS: Dofetilide CAP* 125 MCG PO SCH (12:31)
[2019-01-12] MEDS: Cefepime 2 GM in Dextrose(*) 2 GM/50 ML BAG IV SCH (14:16)
--- NOTE | 2019-01-12 15:09 | PN ---
Progress Note - Progress Note Date of Service: 01/12/19 - Pulm note Note: Pt seen and examined at bedside this am and again after episode of possible aspiration Pt with coughing and chocking last night after apple sauce with tikosyn. Pt was having swallow eval done at bedside today, started to desaturate to 50s while on vapotherm. Pt was bagged with improvement in sats. Secretions were suctioned through deep NG suction. Saturations improved. Pt also was placed on vest therapy after nebs with mucomyst was administrated. Active Medications Generic Name Dose Route Start Last Admin Trade Name Freq PRN Reason Stop Dose Admin Acetaminophen 650 mg 01/04/19 17:12 01/09/19 08:08 Tylenol Adult Liq* PO 650 mg Q6H PRN Administration MILD PAIN or TEMP > 100.4 Acetylcysteine 400 mg 01/12/19 13:00 01/12/19 12:08 Mucomyst Inhalation Mikayla* INH 400 mg [id number] AWAKE ONEYDA Administration Albuterol/Ipratropium 1 neb 01/06/19 18:14 01/12/19 12:07 Duoneb (Albuterol 2.5 Mg/Ipratropium 0.5 Mg) INH 1 neb Q4H PRN Administration SOB/WHEEZING Dextrose 25 ml 01/05/19 09:53 Dextrose 50% Vial 50 Ml* IV PUSH .FOR FS < 60 - SS PRN FS < 60 Dofetilide 125 mcg 01/02/19 21:00 01/12/19 12:31 Tikosyn Cap* PO Not Given BID ONEYDA Enoxaparin Sodium 40 mg 01/04/19 18:00 01/11/19 18:22 Lovenox(*) SUBCUT 40 mg Q24H ONEYDA Administration Famotidine 20 mg 01/05/19 09:00 01/12/19 12:31 Pepcid Susp 8mg/Ml G TUBE Not Given DAILY ONEYDA Cefepime HCl 2 gm in 50 mls @ 100 mls/hr 01/12/19 13:00 01/12/19 14:16 Maxipime 2 Gm In Dextrose Duplex (*) IV 100 mls/hr Q12H ONEYDA Administration Lorazepam 1 mg 01/12/19 00:20 01/12/19 00:39 Ativan Inj* IV PUSH 1 mg Q6H PRN Administration ANXIETY Miscellaneous 1 ea 01/12/19 00:20 Ativan Pyxis Saha N/A .ATIVAN IV SAHA PRN PYXIS SAHA Vital Signs Temp Pulse Resp BP Pulse Ox 99.1 F 75 21 99/38 100 01/12/19 12:00 01/12/19 14:08 01/12/19 14:08 01/12/19 14:08 01/12/19 14:08 O/E: Pt in NAD, thin female, appears weak HEENT: PERRLA Lungs: Dimnished air entry at bases, no wheeze CVS: S1, S2+ Abd: Soft, BS+ Ext: Normal ROM Neuro: No focal deficits Skin: No rash Laboratory Results - last 24 hr 01/11/19 01/11/19 01/11/19 03:45 03:45 03:45 WBC 10.7 RBC 3.42 L Hgb 11.2 L Hct 34 L MCV 99 H MCH 33 H MCHC 33 RDW 13 Plt Count 377 MPV 8.0 Neut % (Auto) 81.7 Lymph % (Auto) 10.0 [place] % (Auto) 5.3 Eos % (Auto) 2.7 Baso % (Auto) 0.3 Absolute Neuts (auto) 8.7 H Absolute Lymphs (auto) 1.1 Absolute Monos (auto) 0.6 Absolute Eos (auto) 0.3 Absolute Basos (auto) 0.0 Absolute Nucleated RBC 0.0 Nucleated RBC % 0.0 Sodium 153 H Potassium 3.9 Chloride 115 H Carbon Dioxide 28 Anion Gap 10 BUN 37 H Creatinine 0.69 Est GFR ( Amer) 104.0 Est GFR (Non-Af Amer) 85.9 BUN/Creatinine Ratio 53.6 H Glucose 116 H Calcium 10.6 H Ionized Calcium 1.27 Phosphorus 2.5 Magnesium 2.7 I/R: 63 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 Clearly is aspirating and likely was so at home to some extent and likely was the source of her pneumonia in the first place ( aspiration of the bowel prep). Patient continued to have aspiration episodes even with minimal amount of apple sauce to have her medication. She had swallow evaluation today and had signficant aspiration resulting in resp distress. 1. Acute Hypoxic Respiratory Failure s/p extubation after intubated for 7 days 2. Coughing while eating, still with concern for aspiration, swallow eval today with active episode 3. PNA 4. Hypernatremia, worsened today 5. Hypercalcemia Acute Hypoxic Respiratory Failure - improving, ? aspirating. Had worsening of reps status after swallow evaluation. Thick secretions are suctioned. Mucomyst was administered. Pt improved after suctioning with improved WOB. NPO given aspirations. Will start TPN, she will need PICC line. Will titrate FiO2 as tolerated. Pt able to self suction. Pneumonia - Given aspiration event again and fever, started on Cefepime. Electrolyte Abnormalities - repleted as needed. Changed fluid to D5W given worsening of hypernatremia, pt appearing dehydrated clinically. Pt declined blood draw. Will send labs after PICC line. Pt not able to get enough nutrition orally. Given aspiration episodes, will start TPN. A.Fib with RVR, rate controlled. C/w Tikosyn. Pt with muscular dystrophy, deconditioned, muscle wasting due to poor nutritional status. OOB to chair as tolerated. GI/DVT prophylaxis D/W pt and in detail at bedside Will need palliative care consult Pt doesnot want trach and PEG however as per pt`s if she has to decide between dieing and trach, she would take trach
[2019-01-12 16:24] LABS: BUN/Creatinine Ratio 41.7 (8-20); Calcium 9.8 mg/dL (8.6-10.3); EGFR African American 158.1 (>60); EGFR Non-African American 130.6 (>60); Potassium 3.5 mmol/L (3.5-5.0)
[2019-01-12] MEDS ORDERED: TPN* 24 HR with Dextrose 50% Water* 500 ML, Amino Acid Infusion 10%* 850 ML, Sterile Wa... CENTR SCH ×16 (17:00)
[2019-01-12] MEDS ORDERED: TPN* 24 HR with D10W 1000 ML BAG* 1,000 ML, Amino Acid Infusion 10%* 850 ML, Sterile Wa... IV SCH ×12 (17:00)
[2019-01-12] MEDS: Enoxaparin(*) 40 MG/0.4 ML SYR SUBCUT SCH (17:26)
[2019-01-12] MEDS ORDERED: D5W 1000 ML BAG* 1,000 ML IV SCH (17:30)
[2019-01-13 00:34] LABS: Urine Appearance Cloudy; Urine Bilirubin Negative (Negative); Urine Blood 2+ (Negative); Urine Color Yellow; Urine Glucose 1+(50 mg/dL) (Negative); Urine Ketones Negative (Negative); Urine Nitrite Negative (Negative); Urine Protein 1+(30 mg/dL) (Negative); Urine Specific Gravity 1.023 (1.010-1.030); Urine Urobilinogen Negative (Negative)
[2019-01-13 00:52] LABS: Urine Bacteria 1+ (Absent); Urine Red Blood Cell 3+(>10/hpf) (Absent); Urine Squamous Epithelial Cell Present (Absent); Urine White Blood Cell 1+(6-10/hpf) (Absent)
[2019-01-13] MEDS: Dofetilide CAP* 125 MCG PO SCH ×2 (00:58→12:09)
[2019-01-13] MEDS: Cefepime 2 GM in Dextrose(*) 2 GM/50 ML BAG IV SCH (00:59)
[2019-01-13] MEDS: Acetylcysteine INHALATION SOL* 200 MG/ML NEB.SOLN 10 ML INH SCH ×2 (02:08→07:46)
[2019-01-13] MEDS ORDERED: Succinylcholine* 20 MG/ML 10 ML VIAL ONE (08:30)
[2019-01-13] MEDS ORDERED: Morphine INJ* 4 MG/ML 1 ML SYRINGE (NEW SYRINGE VERSION) ONE (08:36)
[2019-01-13] MEDS: Morphine INJ* 4 MG/ML 1 ML SYRINGE (NEW SYRINGE VERSION) IV PRN ×2 (08:40→08:45)
[2019-01-13] MEDS ORDERED: Scopolamine 1.5 mg* PATCH TRANSDERM SCH (09:00)
[2019-01-13] MEDS ORDERED: Morphine PCA ADULT* 5 MG/ML 30 ML PCA SCH ×3 (09:00→14:30)
[2019-01-13 09:20] VITALS: BP 129/60
--- NOTE | 2019-01-13 11:59 | PN ---
Progress Note - Progress Note Date of Service: 01/13/19 - Progress note Note: Pt seen and examined at bedside this am and multiple times through out. Pt has been more confused/delirious since yesterday. Pt has refused blood draws. Pt had episode of desaturation this am, likely from drowning in her own secretions. She was already on 100% FiO2 and 40L at that time. Pt was noted ti be in resp distress, tachypneic and tachycardic. Pt was also bagged for few minutes. She had deep NT suctioning. Pt took longer time to recover from this episode. Pt with very weak cough. Pts at bedside at that time, given downhill progression of pts condition and no permanent fix, agreed for comfort measures. Pt received Morphine with decrease in air hunger. Pt remains somnolent at this time. Active Medications Generic Name Dose Route Start Last Admin Trade Name Freq PRN Reason Stop Dose Admin Morphine Sulfate 30 mls @ 0 mls/hr 01/13/19 09:00 01/13/19 10:17 Morphine Blow Mold Technician Adult* 5 Mg/Ml CHIEF OF SERVICE 0.4 mls/hr .change Q24H ONEYDA Administration Protocol Per Protocol Lorazepam 1 mg 01/12/19 00:20 01/12/19 00:39 Ativan Inj* IV PUSH 1 mg Q6H PRN Administration ANXIETY Miscellaneous 1 ea 01/12/19 00:20 Ativan Pyxis Saha N/A .ATIVAN IV SAHA PRN PYXIS SAHA Morphine Sulfate 4 mg 01/13/19 08:43 01/13/19 08:45 Morphine Inj (Syringe)* IV 4 mg Q5M PRN Administration MOD PAIN/ RESPIRATORY DISTRESS Pharmacy Profile Note 1 note 01/16/19 08:59 Scopolamine Patch Remove* PATCH OFF Q7H ONEYDA Scopolamine 1 patch 01/13/19 09:00 01/13/19 08:55 Transderm-Scop 1.5 Mg Patch* TRANSDERM 1 patch Q72H ONEYDA Administration Vital Signs Temp Pulse Resp BP Pulse Ox 99.5 F 141 25 129/60 97 01/13/19 07:43 01/13/19 09:00 01/13/19 10:17 01/13/19 08:00 01/13/19 09:00 O/E: Pt in NAD HEENT: Accessory muscle usage+ Lungs: Diminished air entry b/l, crackles and rhonchi+ CVS: S1, S2+, tachycardic Abd: Soft, BS diminished Ext: Withdraws spontaneously Neuro: Drowsy, opens eyes to verbal stimuli Skin: No rash, bruises in upper extremities Laboratory Results - last 24 hr 01/12/19 01/13/19 15:50 00:20 Sodium 155 H Potassium 3.5 Chloride 116 H Carbon Dioxide 32 Anion Gap 7 BUN 20 Creatinine 0.48 L Est GFR ( Amer) 158.1 Est GFR (Non-Af Amer) 130.6 BUN/Creatinine Ratio 41.7 H Glucose 118 H Calcium 9.8 Urine Color Yellow Urine Appearance Cloudy Urine pH 5.0 Ur Specific [place] 1.023 Urine Protein 1+(30 mg/dl) A Urine Ketones Negative Urine Blood 2+ A Urine Nitrate Negative Urine Bilirubin Negative Urine Urobilinogen Negative Ur Leukocyte Esterase Negative Urine WBC (Auto) 1+(6-10/hpf) A Urine RBC (Auto) 3+(>10/hpf) A Ur Squamous Epith Cells Present A Urine Bacteria 1+ A Hyaline Casts Present A Urine Glucose 1+(50 mg/dl) A I/R: 63 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 Patient continued to have aspiration episodes even with minimal amount of apple sauce to have her medication. She had epidose of severe desaturation/resp distress during swallow evaluation 01/12 from which she recovered after few min, she had another episode this morning where she drowned on her own secretions and desaturated. It took her longer to recover from this event. She was bagged while on 100% Fio2 and was suctioned. She also has been declining neurologically, has been more drowsy and delirious. She has alos remained tachycardic, could not receive her Tikosyn. She has been restarted on abx for aspiration PNA. Pt continues to decline. I have discussed with her who is very involved in her care. He told me that they didnot have advance directives in place in the past to be able to decide depending on her situation. I have discussed with him that in her current situation, she would require reintubation and eventual tracheostomy. She would also need PEG tube placement for nutrition which might not prevent aspirations. Given her current situation with muscle weakness she has not been able to clear her secretions and tracheostomy would only help to be able to suction deeply and endotracheally. I have also discussed with him that she would not be able to return home and would need to be in Vent facility for weaning. Pt at this time asked what would be other option and that if I had suggestion. I have then discussed with him that if he and Cathleen would not prefer to have above option given the significant deterioration during this hospitalization and fact that she might be suffering only with what we are doing currently by forcing treatment on her, and suggesting option of comfort care measures and let nature take its course. Pt decided on comfort care measures, signed comfort care, DNR/DNI forms. Cathleen was given Morphine, started on drip subsequently. She is continued on vapotherm. Other medications and interventions are minimized. contacted their children and they and other family members are at bedside.
[2019-01-13] MEDS: Famotidine SUSP ORALSYR 8 MG/ML G TUBE SCH (12:09)
--- NOTE | 2019-01-13 21:54 | DS ---
CC: Dr. Giles; Dr. Wynn; Dr. Craig; Dr. Vignesh Spain; Dr. Tony Spain; Dr. Uriarte SUMMARY: DATE OF ADMISSION: 01/02/19 DATE OF : 01/13/19 TIME OF : 1942. CAUSE OF : 1. Acute respiratory failure due to aspiration pneumonia. 2. Dysphagia. 3. Myotonic muscular dystrophy. HOSPITALIZATION COURSE: Mrs. Madsen was a 63-year-old female with history of myotonic muscular dystrophy, who was admitted to the hospital after an elective colonoscopy performed on 01/02/2019. After the colonoscopy she developed respiratory failure . She presented with likely aspiration pneumonia was intubated on admission and stayed on ventilator for 7 days. During her ICU stay she was noted to have uncontrolled atrial fibrillation and yacht hand were involved with it's management. After extubation, she continued to have problems with managing her secretions, had significant dysphagia and was unable to swallow. She continued to have recurrent episodes of aspiration. Despite aggressive respiratory therapy management and suctioning , she continued to worsen. She was not interested in the feeding tube as she was not interested in tracheostomy. On 01/13/19, she started refusing medications and respiratory therapy procedures. Her condition continued to worse and Dr. Wynn at that point, the patient's current ICU attending, made the patient comfort care at the patient's request. The patient was placed on morphine for comfort and was pronounced at 19:43 p.m. on . The patient's family was at bedside at the time of and they were not interested in autopsy. Please note that this is a very abbreviated summary of the patient's prolonged and complicated hospitalization. Please refer to further medical for details. [id number]/[facility] #: [id number] [facility]
--- NOTE | 2019-01-14 01:58 | DS ---
SUMMARY: ADDENDUM: Please note that the case was discussed with neuropsychology medical consultant, Dr. Lay", who released the body to the morgue. [id number]/[facility] #: [id number] ANDREW
[2019-01-16] MEDS ORDERED: Scopolamine PATCH Remove* 1 NOTE MISC PATCH OFF SCH (08:59)
--- NOTE | 2019-01-29 10:26 | HP ---
HISTORY AND PHYSICAL: ADDENDUM: DATE OF ADMISSION: 01/02/19 Family history was not obtained at the time of admission, but is not relevant in this case. [id number]/[facility] #: [id number]
== END 2019-01-13 19:43 | disposition expired | DRG 130 ==
LOC: ICU 15:39
PROVIDERS: ADMIT Internal Medicine Critical Care Medicine; ATTEND Internal Medicine
PROC: 5A09357 Assistance with Respiratory Ventilation, Less than 24 Consecutive Hours, Continuous Positive Airway Pressure (ICD-10-PCS; 2019-01-02)
PROC: 5A1955Z Respiratory Ventilation, Greater than 96 Consecutive Hours (ICD-10-PCS; principal; 2019-01-03)
PROC: 0BH17EZ Insertion of Endotracheal Airway into Trachea, Via Natural or Artificial Opening (ICD-10-PCS; 2019-01-03)
PROC: 02HV33Z Insertion of Infusion Device into Superior Vena Cava, Percutaneous Approach (ICD-10-PCS; 2019-01-03)
DX: J96.01 Acute respiratory failure with hypoxia (principal); J69.0 Pneumonitis due to inhalation of food and vomit; T82.855A Stenosis of coronary artery stent, initial encounter; J90 Pleural effusion, not elsewhere classified; E87.3 Alkalosis; E87.0 Hyperosmolality and hypernatremia; I48.0 Paroxysmal atrial fibrillation; I25.10 Atherosclerotic heart disease of native coronary artery without angina pectoris; E78.5 Hyperlipidemia, unspecified; G47.33 Obstructive sleep apnea (adult) (pediatric); I44.7 Left bundle-branch block, unspecified; I35.1 Nonrheumatic aortic (valve) insufficiency; G71.11 Myotonic muscular dystrophy; E87.6 Hypokalemia; E83.42 Hypomagnesemia; E83.51 Hypocalcemia; E83.39 Other disorders of phosphorus metabolism; K21.9 Gastro-esophageal reflux disease without esophagitis; E86.1 Hypovolemia; E83.52 Hypercalcemia; Z66 Do not resuscitate; R13.10 Dysphagia, unspecified; Z51.5 Encounter for palliative care; Z95.5 Presence of coronary angioplasty implant and graft; Z86.718 Personal history of other venous thrombosis and embolism; Z88.2 Allergy status to sulfonamides; Z88.8 Allergy status to other drugs, medicaments and biological substances
CPT/HCPCS: 36415; 36600; 71045; 76604; 80048; 80053; 81003; 81015; 82330; 82565; 82803; 83605; 83735; 84100; 84439; 84443; 84484; 84520; 85025; 85027; 85730; 87040; 87070; 87077; 87086; 87186; 87205; 87641; 87899; 93005; 93306; 93308; 94002; 94003; 94640; 94660; 94667; 94668; 99156; 99157; A9270-GY; C1751; G8978-GP-CK; G8979-GP-CI; J0153; J0330; J0456; J0610; J0692; J1120; J1644; J1650; J1940; J2060; J2250; J2270; J2704; J2930; J3010; J3473; J3475; J3480; P9045